=== PATIENT | male | born 2000 | race Caucasian/White ===

== ENCOUNTER 2020-09-21 10:28 | Inpatient (IN) ==
[2020-09-21] MEDS ORDERED: SODIUM CHLORIDE 0.9% 1000ML 1,000 ML IV STA (11:45)
[2020-09-21] MEDS ORDERED: ACETAMINOPHEN 1,000 MG/100 ML VIAL IV STA (11:49)
--- NOTE | 2020-09-21 11:58 | Emergency Department Note ---
Impression & Plan Mononucleosis, infectious, with hepatitis, Elevated LFTs, Jaundice ED Provider Note CHIEF COMPLAINT: Abdominal pain, elevated liver enzymes HISTORY OF PRESENTING ILLNESS: This is a 20-year-old male who presents to the emergency department by private vehicle with his mother with concern for e levated liver enzymes and jaundice. Patient has also been having abdominal pain for the past 3 weeks. Patient states that he was diagnosed on 09/14 with mononucleosis. He has been having symptoms of fevers and fatigue and upper abdominal pain since 09/02. He states that he saw his doctor today for repeat labs and they noticed an increase in his liver enzymes compared to previous labs and also felt that he looked jaundiced, so they sent him to the ER for further evaluation. The patient notes that he has had a persistent discomfort in his left upper abdomen, but this has been fairly constant and has not been getting any worse. He has not had any nausea or vomiting. He denies any diarrhea or constipation. He denies any trauma to his abdomen that he knows of, but does note that he was playing lacrosse and continuing to train for about 2 weeks before he got diagnosed with mono. He denies any abnormal bleeding or bruising, unusual rash, or blood in his stool or urine. He notes that he has been having persistent low-grade fevers of 100-101, this usually seems to improve after taking Tylenol. He has been taking Tylenol 2-3 times a day to help manage his body aches, headaches, and abdominal pain. REVIEW OF SYSTEMS: A complete 10 point review of systems was reviewed with the patient with pertinent positives and negatives as per history of present illness. All else were negative. PAST MEDICAL HISTORY: No significant past medical or surgical history SOCIAL HISTORY: Lives at home, he is a college student, denies tobacco use ALLERGIES: No known allergies PHYSICAL EXAM: CONSTITUTIONAL: Pleasant and cooperative. Nontoxic-appearing and no acute distress. Mildly dehydrated, but otherwise well appearing and well nourished. Mild jaundice. HEENT: Normocephalic, atraumatic. PERRLA, EOMI, mild scleral icterus bilaterally. Pharynx is erythematous, mild tonsillar edema but no exudates seen. Airway patent. Tacky mucous membranes. NECK: Supple, full active range of motion without discomfort. Mild posterior cervical adenopathy. No nuchal rigidity or meningismus. RESPIRATORY: Clear to auscultation bilaterally with no wheezing, crackles, rhonchi or stridor. Equal expansion bilaterally. CARDIOVASCULAR: Regular rate and rhythm with no murmurs, rubs or gallops. Normal peripheral perfusion. No edema. GASTROINTESTINAL: Mildly tender in the left upper quadrant, abdomen is otherwise nontender, soft and nondistended. No rebound tenderness or guarding. Mild splenomegaly, no hepatomegaly palpated. No palpable masses. Bowel sounds present in all quadrants. No CVA tenderness bilaterally. MUSCULOSKELETAL: Full range of motion of all joints without discomfort. INTEGUMENTARY: No rash or other significant dermatologic conditions noted. NEUROLOGIC: Alert and oriented X 4 with normal affect. Normal strength and sensation in all 4 extremities. Normal speech. Normal gait observed. ED COURSE AND MEDICAL DECISION MAKING: CC: Patient presenting with complaint of abdominal pain, elvated liver enzymes DIFFERENTIAL DIAGNOSIS: Includes, but not limited to mononucleosis, hepatitis, liver failure, liver toxicity, acetaminophen overdose, splenic enlargement, splenic rupture, pneumonia, pulmonary embolism, pneumothorax, dehydration, electrolyte abnormality, among others. INTERPRETATION OF LABS: Leukocytosis, mild anemia, normal platelets, mild hyponatremia, no other significant electrolyte abnormalities, normal renal function, significantly elevated T bili with elevated liver enzymes. Normal lipase. Coagulation factors within normal limits. UA negative for infection. Covid test negative. IMAGING: CT angio chest PE protocol CT DOSE: 1567.91 mGycm HISTORY: 20 years-old Male with SOB, eval PE. Acute shortness of breath with chest and upper abdominal pain TECHNIQUE: Multiple CTA images of the chest were obtained after the intravenous administration of 120 ml Optiray 320. Coronal and sagittal MIPS were obtained from the axial data set and were submitted for review. All measurements were obtained according to NASCET criteria. A dose lowering technique was utilized adhering to the principles of ALARA. COMPARISON: CT abdomen and pelvis of same day FINDINGS: CTA: The heart is normal in size. Trace pericardial effusion. No thoracic aortic aneurysm or dissection. Respiratory motion artifact and contrast bolus timing limits evaluation of the pulmonary artery. The segmental and subsegmental branches are not well visualized. No central pulmonary emboli are identified. CT CHEST: Unremarkable thyroid. Residual thymic tissue anterior mediastinum. Mildly enlarged mediastinal and hilar lymph nodes measure up to approximately 10 mm. Ax illary chain lymph nodes measure up to 12 mm. Small pleural effusions. No pneumothorax. Dependent bibasilar groundglass and linear consolidative opacities. 4 mm fissural nodule of the left upper lung, image 213. 4 mm solid nodule of the lingula, image 131. A few additional small fissural nodules are seen bilaterally measuring up to 3 mm suggestive of probable benign lymph nodes. Central airways are patent. No pneumoperitoneum. Splenomegaly with trace perisplenic ascites. Mild generalized body wall edema. There is no acute fracture or suspicious bone lesion. Mild mid thoracic dextroscoliosis. IMPRESSION: 1. Limited evaluation of the pulmonary artery as above. No central pulmonary emboli identified. 2. Small pleural effusions with mild bibasilar opacities suggestive of atelectasis. 3. Mild mediastinal, hilar and axillary chain adenopathy, possibly reactive considering the patient's reported history of mononucleosis. This finding in conjunction with the splenomegaly should be followed to exclude a lymphoproliferative disorder. ----- CT abd pelvis IV con only CLINICAL HISTORY: upper abd pain, + mono COMPARISON STUDY: None. TECHNIQUE: Patient was scanned in a dynamic helical fashion during intravenous administration of 1 20 cc of Optiray 320 A dose lowering technique was utilized adhering to the principles of ALARA. CT DOSE: FINDINGS: Lower chest: There are bibasilar airspace opacities statistically atelectatic. There are small bilateral pleural effusions Liver: The contrast-enhanced liver is normal in size, contour, and attenuation. There is no intrahepatic biliary ductal dilatation. The hepatic veins and portal veins are patent. Gallbladder: Contracted with mild pericholecystic fluid. Spleen: Enlarged measuring 21 cm. There is minimal perisplenic fluid. Pancreas: Unremarkable. Adrenal glands: Unremarkable. Kidneys: There is symmetric renal cortical enhancement. The kidneys are normal in size without hydronephrosis. Bowel: There are no transition zones indicate bowel obstruction. There is no evidence of acute diverticulitis. There is no evidence of acute appendicitis. Peritoneum: There is trace free pelvic fluid. There is no free intraperitoneal air. Vasculature: The abdominal aorta is normal in course and caliber. Adenopathy: Shotty mesenteric lymph nodes are likely reactive. Pelvic viscera: The bladder, and pelvic viscera are unremarkable. Skeletal structures: No destructive osseous lesions are seen. IMPRESSION: 1. No evidence of bowel obstruction. No evidence of free air 2. Small bilateral pleural effusions with basilar opacities likely atelectatic 3. Normal appendix. No evidence of acute diverticulitis 4. Moderate splenomegaly (21 cm). No current evidence of splenic rupture 5. Low volume ascites with minimal pericholecystic fluid, left perirenal fluid, perisplenic fluid, and minimal pelvic fluid 6. Mildly prominent mesenteric lymph nodes, likely reactive MEDICATION RECONCILIATION: I attest that I have personally reviewed the patient's current medication list. INITIAL VITAL SIGNS REVIEW: I reviewed the patient's initial vital signs and interpret them as follows: T: Afebrile; BP: Normotensive; HR: Mildly ta chycardic; RR: Within normal limits; Pulse Ox: Within normal limits on room air. MDM SUMMARY: Patient was evaluated at bedside, history and physical exam performed. Patient is alert and oriented, in no acute distress, resting calmly in stretcher. Patient is afebrile and nontoxic-appearing, but does appear to feel unwell. He is mildly jaundiced with mild scleral icterus. Abdomen is mildly tender in the left upper quadrant, mild splenomegaly on palpation. Orders were placed for labs, UA, IV fluid bolus for hydration, CTA of the chest and CT abdomen/pelvis with IV contrast to evaluate for shortness of breath and left upper abdominal pain. IV morphine ordered for pain. Patient discussed with Dr. Mcarthur, who agrees with my assessment, plan, and disposition. Labs and imaging reviewed as above, labs are notable for leukocytosis and significantly elevated liver enzymes and T bili. No UTI. Renal function is normal. Coagulation factors within normal limits. An acetaminophen level was unable to be performed today due to the patient's elevated bilirubin level. Patient reassessed multiple times throughout ED stay, he has remained hemodynamically stable, and his pain is improved after the morphine. Given his significant elevation in liver enzymes and T bili, I did consult to gastroenterology and spoke on the phone with Caren Houston PA-C. She spoke with Dr. Gould, who recommended admitting the patient for observation, and also recommended adding on several send out labs for further evaluation of hepatitis. They did also recommend starting the patient on N-acetylcysteine treatment, the first dose was ordered per their recommendations. I spoke on the phone with LINDA Cummins with the [facility] team, who agreed to evaluate the patient for admission. The patient and his mother were updated on all results and plan for admission, all questions were answered to the best of my ability and the patient and his mother were happy with this plan. The patient was stable at time of admission. The chart was completed utilizing [employer] Speech voice recognition software. Grammatical errors, random word insertions, pronoun errors, and incomplete sentences are an occasional consequence of this system due to software limitations, ambient noise, and hardware issues. Any formal questions or concerns about the content, text, or information contained within the body of this dictation should be directly addressed to the nurse practitioner for clarification. Past Med/Surg History Medical History (Updated 09/21/20 @ 20:48 by LINDA Gottlieb) COVID-19 virus infection WPW syndrome Surgical History History of heart surgery Family History (Updated 09/21/20 @ 19:58 by Avery Samayoa MD) Father No significant medical problems Sister No problems noted. Mother Deep vein thrombosis Grandfather (Maternal) Deep vein thrombosis Social History Smoking Status: Never smoker Hx Alcohol Use: Yes Hx Substance Use: No Current Living Situation: Family Current Living Situation Comment: Lives with mom and dad Feels Safe at Home: Yes Childhood Exposure to Second-Hand Smoke: No Dental Care, Regularly: Yes Allergies Allergies Allergy/AdvReac Type Severity Reaction Status Date / Time cat dander Allergy Unknown Verified 09/21/20 18:33 horse dander Allergy Unknown Verified 09/21/20 18:33 mold Allergy Unknown Verified 09/21/20 18:33 ragweed pollen Allergy Unknown Verified 09/21/20 18:33 tree and shrub pollen Allergy Unknown Verified 09/21/20 18:33 Home Meds Home Medications Medication Instructions Recorded Confirmed [id number]-acetaminophen 30 ml PO QID PRN 09/21/20 09/21/20 [NyQuil] ibuprofen 200 mg PO Q6H PRN 09/21/20 09/21/20 Results & Data (ED) Vital Signs Vital Signs - 24 hr 09/21/20 10:43 09/21/20 12:00 09/21/20 12:18 Temperature 37.8 C H Temperature Source Temporal Artery Scan Pulse Rate 95 H 95 H 94 H Pulse Rate [Apical] Pulse Rate from SpO2 Sensor 95 H 93 H Respiratory Rate 18 23 32 H Blood Pressure 132/61 133/61 Blood Pressure [Right Arm] Blood Pressure Mean 84 85 Blood Pressure Mean [Right Arm] Pulse Oximetry 98 98 98 Oxygen Delivery Method Sepsis Recent Fever Within 48 Hours No Sepsis New/Unexplained Change in Mental Status No Sepsis Action Taken by Nursing No Action Required 09/21/20 12:20 09/21/20 12:22 09/21/20 12:30 Temperature Temperature Source Pulse Rate 99 H 89 97 H Pulse Rate [Apical] Pulse Rate from SpO2 Sensor 98 H 89 95 H Respiratory Rate 28 H 19 26 H Blood Pressure 116/68 115/70 Blood Pressure [Right Arm] Blood Pressure Mean 84 85 Blood Pressure Mean [Right Arm] Pulse Oximetry 98 97 99 Oxygen Delivery Method Sepsis Recent Fever Within 48 Hours Sepsis New/Unexplained Change in Mental Status Sepsis Action Taken by Nursing 09/21/20 12:31 09/21/20 12:40 09/21/20 12:50 Temperature Temperature Source Pulse Rate 92 H 93 H 94 H Pulse Rate [Apical] Pulse Rate from SpO2 Sensor 92 H 95 H 95 H Respiratory Rate 18 31 H 28 H Blood Pressure Blood Pressure [Right Arm] Blood Pressure Mean Blood Pressure Mean [Right Arm] Pulse Oximetry 99 99 98 Oxygen Delivery Method Sepsis Recent Fever Within 48 Hours Sepsis New/Unexplained Change in Mental Status Sepsis Action Taken by Nursing 09/21/20 13:20 09/21/20 13:30 09/21/20 13:31 Temperature Temperature Source Pulse Rate 100 H 108 H 96 H Pulse Rate [Apical] Pulse Rate from SpO2 Sensor 100 H 108 H 97 H Respiratory Rate 20 23 25 H Blood Pressure 111/69 111/69 Blood Pressure [Right Arm] Blood Pressure Mean 83 83 Blood Pressure Mean [Right Arm] Pulse Oximetry 95 94 94 Oxygen Delivery Method Sepsis Recent Fever Within 48 Hours Sepsis New/Unexplained Change in Mental Status Sepsis Action Taken by Nursing 09/21/20 13:40 09/21/20 13:50 09/21/20 14:00 Temperature Temperature Source Pulse Rate 99 H 100 H 101 H Pulse Rate [Apical] Pulse Rate from SpO2 Sensor 100 H 99 H 99 H Respiratory Rate 31 H 27 H 24 Blood Pressure 112/57 L Blood Pressure [Right Arm] Blood Pressure Mean 75 Blood Pressure Mean [Right Arm] Pulse Oximetry 94 94 94 Oxygen Delivery Method Sepsis Recent Fever Within 48 Hours Sepsis New/Unexplained Change in Mental Status Sepsis Action Taken by Nursing 09/21/20 14:01 09/21/20 14:19 09/21/20 14:20 Temperature Temperature Source Pulse Rate 103 H 101 H 95 H Pulse Rate [Apical] Pulse Rate from SpO2 Sensor 104 H Respiratory Rate 24 16 17 Blood Pressure 105/62 Blood Pressure [Right Arm] Blood Pressure Mean 76 Blood Pressure Mean [Right Arm] Pulse Oximetry 95 Oxygen Delivery Method Sepsis Recent Fever Within 48 Hours Sepsis New/Unexplained Change in Mental Status Sepsis Action Taken by Nursing 09/21/20 14:21 09/21/20 14:30 09/21/20 14:31 Temperature Temperature Source Pulse Rate 96 H 96 H 99 H Pulse Rate [Apical] Pulse Rate from SpO2 Sensor Respiratory Rate 18 27 H 17 Blood Pressure 115/61 Blood Pressure [Right Arm] Blood Pressure Mean 79 Blood Pressure Mean [Right Arm] Pulse Oximetry Oxygen Delivery Method Sepsis Recent Fever Within 48 Hours Sepsis New/Unexplained Change in Mental Status Sepsis Action Taken by Nursing 09/21/20 14:40 09/21/20 14:50 09/21/20 15:00 Temperature Temperature Source Pulse Rate 99 H 97 H 99 H Pulse Rate [Apical] Pulse Rate from SpO2 Sensor Respiratory Rate 20 26 H 30 H Blood Pressure 108/59 L Blood Pressure [Right Arm] Blood Pressure Mean 75 Blood Pressure Mean [Right Arm] Pulse Oximetry Oxygen Delivery Method Sepsis Recent Fever Within 48 Hours Sepsis New/Unexplained Change in Mental Status Sepsis Action Taken by Nursing 09/21/20 15:01 09/21/20 15:10 09/21/20 15:20 Temperature Temperature Source Pulse Rate 102 H 94 H 94 H Pulse Rate [Apical] Pulse Rate from SpO2 Sensor Respiratory Rate 18 31 H 27 H Blood Pressure Blood Pressure [Right Arm] Blood Pressure Mean Blood Pressure Mean [Right Arm] Pulse Oximetry Oxygen Delivery Method Sepsis Recent Fever Within 48 Hours Sepsis New/Unexplained Change in Mental Status Sepsis Action Taken by Nursing 09/21/20 15:30 09/21/20 15:31 09/21/20 15:40 Temperature Temperature Source Pulse Rate 101 H 102 H 93 H Pulse Rate [Apical] Pulse Rate from SpO2 Sensor Respiratory Rate 27 H 24 18 Blood Pressure 102/65 Blood Pressure [Right Arm] Blood Pressure Mean 77 Blood Pressure Mean [Right Arm] Pulse Oximetry Oxygen Delivery Method Sepsis Recent Fever Within 48 Hours Sepsis New/Unexplained Change in Mental Status Sepsis Action Taken by Nursing 09/21/20 15:50 09/21/20 16:00 09/21/20 16:01 Temperature Temperature Source Pulse Rate 93 H 103 H 92 H Pulse Rate [Apical] Pulse Rate from SpO2 Sensor Respiratory Rate 28 H 26 H 29 H Blood Pressure 118/64 Blood Pressure [Right Arm] Blood Pressure Mean 82 Blood Pressure Mean [Right Arm] Pulse Oximetry Oxygen Delivery Method Sepsis Recent Fever Within 48 Hours Sepsis New/Unexplained Change in Mental Status Sepsis Action Taken by Nursing 09/21/20 16:10 09/21/20 16:20 09/21/20 16:30 Temperature Temperature Source Pulse Rate 93 H 91 H 98 H Pulse Rate [Apical] Pulse Rate from SpO2 Sensor Respiratory Rate 29 H 20 33 H Blood Pressure Blood Pressure [Right Arm] Blood Pressure Mean Blood Pressure Mean [Right Arm] Pulse Oximetry Oxygen Delivery Method Sepsis Recent Fever Within 48 Hours Sepsis New/Unexplained Change in Mental Status Sepsis Action Taken by Nursing 09/21/20 16:40 09/21/20 16:50 09/21/20 17:00 Temperature Temperature Source Pulse Rate 106 H 100 H 93 H Pulse Rate [Apical] Pulse Rate from SpO2 Sensor Respiratory Rate 27 H 23 27 H Blood Pressure 171/97 H Blood Pressure [Right Arm] Blood Pressure Mean 121 Blood Pressure Mean [Right Arm] Pulse Oximetry Oxygen Delivery Method Sepsis Recent Fever Within 48 Hours Sepsis New/Unexplained Change in Mental Status Sepsis Action Taken by Nursing 09/21/20 17:01 09/21/20 17:10 09/21/20 17:24 Temperature Temperature Source Pulse Rate 95 H 95 H 104 H Pulse Rate [Apical] Pulse Rate from SpO2 Sensor 106 H Respiratory Rate 19 31 H 28 H Blood Pressure Blood Pressure [Right Arm] Blood Pressure Mean Blood Pressure Mean [Right Arm] Pulse Oximetry 93 Oxygen Delivery Method Sepsis Recent Fever Within 48 Hours Sepsis New/Unexplained Change in Mental Status Sepsis Action Taken by Nursing 09/21/20 17:30 09/21/20 17:31 09/21/20 17:40 Temperature Temperature Source Pulse Rate 102 H 100 H 96 H Pulse Rate [Apical] Pulse Rate from SpO2 Sensor 102 H 101 H 97 H Respiratory Rate 20 16 22 Blood Pressure 107/66 Blood Pressure [Right Arm] Blood Pressure Mean 79 Blood Pressure Mean [Right Arm] Pulse Oximetry 93 93 94 Oxygen Delivery Method Sepsis Recent Fever Within 48 Hours Sepsis New/Unexplained Change in Mental Status Sepsis Action Taken by Nursing 09/21/20 17:50 09/21/20 18:00 09/21/20 18:01 Temperature Temperature Source Pulse Rate 96 H 101 H 98 H Pulse Rate [Apical] Pulse Rate from SpO2 Sensor 97 H 100 H 100 H Respiratory Rate 22 18 20 Blood Pressure 109/58 L Blood Pressure [Right Arm] Blood Pressure Mean 75 Blood Pressure Mean [Right Arm] Pulse Oximetry 94 95 97 Oxygen Delivery Method Sepsis Recent Fever Within 48 Hours Sepsis New/Unexplained Change in Mental Status Sepsis Action Taken by Nursing 09/21/20 18:10 09/21/20 18:20 09/21/20 18:22 Temperature Temperature Source Pulse Rate 101 H 103 H Pulse Rate [Apical] 99 H Pulse Rate from SpO2 Sensor 98 H 105 H Respiratory Rate 20 28 H 16 Blood Pressure Blood Pressure [Right Arm] 109/58 L Blood Pressure Mean Blood Pressure Mean [Right Arm] 75 Pulse Oximetry 94 93 94 Oxygen Delivery Method Room Air Sepsis Recent Fever Within 48 Hours Sepsis New/Unexplained Change in Mental Status Sepsis Action Taken by Nursing 09/21/20 18:26 09/21/20 18:30 09/21/20 18:31 Temperature Temperature Source Pulse Rate 93 H 96 H 92 H Pulse Rate [Apical] Pulse Rate from SpO2 Sensor 92 H 97 H 93 H Respiratory Rate 21 20 30 H Blood Pressure 109/58 L 119/78 Blood Pressure [Right Arm] Blood Pressure Mean 75 91 Blood Pressure Mean [Right Arm] Pulse Oximetry 94 95 93 Oxygen Delivery Method Sepsis Recent Fever Within 48 Hours Sepsis New/Unexplained Change in Mental Status Sepsis Action Taken by Nursing 09/21/20 18:40 09/21/20 18:50 09/21/20 19:00 Temperature Temperature Source Pulse Rate 95 H 96 H 101 H Pulse Rate [Apical] Pulse Rate from SpO2 Sensor 94 H 96 H 100 H Respiratory Rate 16 21 22 Blood Pressure 125/73 Blood Pressure [Right Arm] Blood Pressure Mean 90 Blood Pressure Mean [Right Arm] Pulse Oximetry 95 93 94 Oxygen Delivery Method Sepsis Recent Fever Within 48 Hours Sepsis New/Unexplained Change in Mental Status Sepsis Action Taken by Nursing 09/21/20 19:01 09/21/20 19:10 Temperature Temperature Source Pulse Rate 99 H 100 H Pulse Rate [Apical] Pulse Rate from SpO2 Sensor 98 H 101 H Respiratory Rate 33 H 32 H Blood Pressure Blood Pressure [Right Arm] Blood Pressure Mean Blood Pressure Mean [Right Arm] Pulse Oximetry 93 93 Oxygen Delivery Method Sepsis Recent Fever Within 48 Hours Sepsis New/Unexplained Change in Mental Status Sepsis Action Taken by Nursing Laboratory Data Result diagrams: 09/21/20 12:02 09/21/20 12:02 Lab Results 09/21/20 09/21/20 09/21/20 Range/Units 12:02 12:02 14:10 WBC 18.10 H (4.8-10.8) K/uL RBC 4.15 L (4.7-6.1) M/uL Hgb 13.6 L (14.0-18.0) g/dL Hct 36.4 L (42-52) % MCV 87.7 (80-100) fL MCH 32.8 (25-34) pg MCHC 37.4 H (32-36) g/dL RDW Std Deviation 45.1 (36.4-46.3) fL RDW Coeff of Tamiko 14.8 H (11.5-14.5) % Plt Count 172 (130-400) K/uL MPV 10.0 (7.4-10.4) fL Neutrophils % (Manual) 14.3 % Lymphocytes % (Manual) 2.7 % Reactive Lymphs % (Man) 79.4 % Monocytes % (Manual) 1.8 % Myelocytes % (Man) 1.8 % Neutrophils # (Manual) 2.59 (1.4-6.5) K/uL Total Absolute Neuts 2.59 (1.4-6.5) K/uL Lymphocytes # (Manual) 0.49 L (1.2-3.4) K/uL Reactive Lymphs # 14.37 K/uL Total Abs Lymphocytes 14.86 H (1.2-3.4) K/uL Monocytes # (Manual) 0.33 (0.11-0.59) K/uL Myelocytes # (Manual) 0.33 H (0-0) K/uL Toxic Vacuolation 2+ PT (9.0-12.0) Seconds INR (0.9-1.1) Sodium 132 L (136-145) mmol/L Potassium 4.7 (3.5-5.1) mmol/L Chloride 99 (98-107) mmol/L Carbon Dioxide 27 (21-32) mmol/L Anion Gap 6.0 (3-11) BUN 9 (7-18) mg/dl Creatinine 0.97 (0.6-1.4) mg/dl Est Cr Clr Drug Dosing 145.4 ml/min Est GFR ( Amer) 127.9 Est GFR (Non-Af Amer) 110.4 BUN/Creatinine Ratio 9.4 L (10-20) Glucose 77 (70-99) mg/dl Calcium 8.4 L (8.5-10.1) mg/dl Total Bilirubin 7.4 H (0.2-1) mg/dl AST 369 H (15-37) U/L ALT 425 H (12-78) U/L Alkaline Phosphatase 665 H (45-117) U/L Total Protein 6.6 (6.4-8.2) gm/dl Albumin 2.8 L (3.4-5.0) gm/dl Globulin 3.8 (2.5-4.0) gm/dl Albumin/Globulin Ratio 0.7 L (0.9-2) Lipase 158 (73-393) U/L Urine Color Dark Yellow Urine Appearance Clear (Clear) Urine pH 5.5 (4.5-7.5) Ur Specific [place] 1.034 H (1.000-1.030) Urine Protein Negative (Negative) Urine Glucose (UA) Negative (Negative) Urine Ketones 1+ H (Negative) Urine Blood Negative (Negative) Urine Nitrite Negative (Negative) Urine Bilirubin 1+ H (Negative) Urine Urobilinogen Negative (Negative) Ur Leukocyte Esterase Negative (Negative) Acetaminophen COVID-19 Eval Order SARS-CoV-2 (PCR) (Negative) Hep Bs Antigen (Neg) Hepatitis C Antibody (Neg) Influenza Type A (PCR) (Neg) Influenza Type B (PCR) (Neg) RSV (RT-PCR) (Neg) Group A Strep (PCR) (NotDetected) 09/21/20 09/21/20 09/21/20 Range/Units 15:40 16:27 16:27 WBC (4.8-10.8) K/uL RBC (4.7-6.1) M/uL Hgb (14.0-18.0) g/dL Hct (42-52) % MCV (80-100) fL MCH (25-34) pg MCHC (32-36) g/dL RDW Std Deviation (36.4-46.3) fL RDW Coeff of Tamiko (11.5-14.5) % Plt Count (130-400) K/uL MPV (7.4-10.4) fL Neutrophils % (Manual) % Lymphocytes % (Manual) % Reactive Lymphs % (Man) % Monocytes % (Manual) % Myelocytes % (Man) % Neutrophils # (Manual) (1.4-6.5) K/uL Total Absolute Neuts (1.4-6.5) K/uL Lymphocytes # (Manual) (1.2-3.4) K/uL Reactive Lymphs # K/uL Total Abs Lymphocytes (1.2-3.4) K/uL Monocytes # (Manual) (0.11-0.59) K/uL Myelocytes # (Manual) (0-0) K/uL Toxic Vacuolation PT 11.1 (9.0-12.0) Seconds INR 1.1 (0.9-1.1) Sodium (136-145) mmol/L Potassium (3.5-5.1) mmol/L Chloride (98-107) mmol/L Carbon Dioxide (21-32) mmol/L Anion Gap (3-11) BUN (7-18) mg/dl Creatinine (0.6-1.4) mg/dl Est Cr Clr Drug Dosing ml/min Est GFR ( Amer) Est GFR (Non-Af Amer) BUN/Creatinine Ratio (10-20) Glucose (70-99) mg/dl Calcium (8.5-10.1) mg/dl Total Bilirubin (0.2-1) mg/dl AST (15-37) U/L ALT (12-78) U/L Alkaline Phosphatase (45-117) U/L Total Protein (6.4-8.2) gm/dl Albumin (3.4-5.0) gm/dl Globulin (2.5-4.0) gm/dl Albumin/Globulin Ratio (0.9-2) Lipase (73-393) U/L Urine Color Urine Appearance (Clear) Urine pH (4.5-7.5) Ur Specific [place] (1.000-1.030) Urine Protein (Negative) Urine Glucose (UA) (Negative) Urine Ketones (Negative) Urine Blood (Negative) Urine Nitrite (Negative) Urine Bilirubin (Negative) Urine Urobilinogen (Negative) Ur Leukocyte Esterase (Negative) Acetaminophen Cancelled COVID-19 Eval Order SARS-CoV-2 (PCR) (Negative) Hep Bs Antigen (Neg) Hepatitis C Antibody (Neg) Influenza Type A (PCR) (Neg) Influenza Type B (PCR) (Neg) RSV (RT-PCR) (Neg) Group A Strep (PCR) NOT DETECTED (NotDetected) 09/21/20 09/21/20 09/21/20 Range/Units 16:27 18:35 18:35 WBC (4.8-10.8) K/uL RBC (4.7-6.1) M/uL Hgb (14.0-18.0) g/dL Hct (42-52) % MCV (80-100) fL MCH (25-34) pg MCHC (32-36) g/dL RDW Std Deviation (36.4-46.3) fL RDW Coeff of Tamiko (11.5-14.5) % Plt Count (130-400) K/uL MPV (7.4-10.4) fL Neutrophils % (Manual) % Lymphocytes % (Manual) % Reactive Lymphs % (Man) % Monocytes % (Manual) % Myelocytes % (Man) % Neutrophils # (Manual) (1.4-6.5) K/uL Total Absolute Neuts (1.4-6.5) K/uL Lymphocytes # (Manual) (1.2-3.4) K/uL Reactive Lymphs # K/uL Total Abs Lymphocytes (1.2-3.4) K/uL Monocytes # (Manual) (0.11-0.59) K/uL Myelocytes # (Manual) (0-0) K/uL Toxic Vacuolation PT (9.0-12.0) Seconds INR (0.9-1.1) Sodium (136-145) mmol/L Potassium (3.5-5.1) mmol/L Chloride (98-107) mmol/L Carbon Dioxide (21-32) mmol/L Anion Gap (3-11) BUN (7-18) mg/dl Creatinine (0.6-1.4) mg/dl Est Cr Clr Drug Dosing ml/min Est GFR ( Amer) Est GFR (Non-Af Amer) BUN/Creatinine Ratio (10-20) Glucose (70-99) mg/dl Calcium (8.5-10.1) mg/dl Total Bilirubin (0.2-1) mg/dl AST (15-37) U/L ALT (12-78) U/L Alkaline Phosphatase (45-117) U/L Total Protein (6.4-8.2) gm/dl Albumin (3.4-5.0) gm/dl Globulin (2.5-4.0) gm/dl Albumin/Globulin Ratio (0.9-2) Lipase (73-393) U/L Urine Color Urine Appearance (Clear) Urine pH (4.5-7.5) Ur Specific [place] (1.000-1.030) Urine Protein (Negative) Urine Glucose (UA) (Negative) Urine Ketones (Negative) Urine Blood (Negative) Urine Nitrite (Negative) Urine Bilirubin (Negative) Urine Urobilinogen (Negative) Ur Leukocyte Esterase (Negative) Acetaminophen COVID-19 Eval Order [facility] at [facility] SARS-CoV-2 (PCR) NEGATIVE (Negative) Hep Bs Antigen Neg (Neg) Hepatitis C Antibody Neg (Neg) Influenza Type A (PCR) Negative (Neg) Influenza Type B (PCR) Negative (Neg) RSV (RT-PCR) Negative (Neg) Group A Strep (PCR) (NotDetected) Administered Medications Sodium Chloride (Nss 1000ml) 1,000 mls @ 125 mls/hr IV .Q8H MATTY Stop: 10/21/20 16:29 Last Admin: 09/21/20 17:39 Dose: 125 mls/hr Documented by: [id number] Acetylcysteine 4,940 mg/ (Dextrose) 524.7 mls @ 125 mls/hr IV ONCE ONE; Protocol Stop: 09/21/20 21:39 Last Admin: 09/21/20 19:58 Dose: 125 mls/hr Documented by: [id number] Discontinued Medications Acetylcysteine (Acetylcysteine 200 Mg/Ml 30ml Vial) 14,800 mg IV NOW STA; Protocol Stop: 09/21/20 16:23 Last Admin: 09/21/20 17:25 Dose: Not Given Documented by: [id number] Sodium Chloride (Nss 1000ml) 1,000 mls @ 999 mls/hr IV .Q1H1M STA Stop: 09/21/20 12:45 Last Infusion: 09/21/20 13:10 Dose: 0 mls/hr Documented by: [id number] Admin: 09/21/20 12:22 Dose: 999 mls/hr Documented by: [id number] Acetaminophen (Ofirmev) 1,000 mg in 100 mls @ 400 mls/hr IV NOW STA Stop: 09/21/20 12:03 Last Admin: 09/21/20 12:45 Dose: Not Given Documented by: [id number] Acetylcysteine 14,800 mg/ (Dextrose) 274 mls @ 274 mls/hr IV ONE ONE; Protocol Stop: 09/21/20 17:59 Last Infusion: 09/21/20 19:07 Dose: 0 mls/hr Documented by: [id number] Admin: 09/21/20 17:24 Dose: 274 mls/hr Documented by: [id number] Ioversol (Optiray 320 125ml) 120 ml IV ONCE ONE Stop: 09/21/20 13:15 Last Admin: 09/21/20 13:15 Dose: 120 ml Documented by: [id number] Morphine Sulfate (Morphine Sulfate 4 Mg/Ml 1 Ml Carp\Vial) 4 mg IV NOW STA Stop: 09/21/20 12:33 Last Admin: 09/21/20 12:54 Dose: 4 mg Documented by: [id number] Morphine Sulfate (Morphine Sulfate 4 Mg/Ml 1 Ml Carp\Vial) Confirm Administered Dose 4 mg .ROUTE .STK-MED ONE Stop: 09/21/20 18:20 Last Admin: 09/21/20 18:21 Dose: 4 mg Documented by: [id number] Discharge Plan Visit Data Chief Complaint: Abnormal Labs/Diagnostic Testing Stated Complaint: ABNORMAL LFT'S,EBV+,JAUNDICE ED Provider: Lyn Mcarthur ED Midlevel Provider: Jenae Plummer Discharge Problem: Mononucleosis, infectious, with hepatitis, Elevated LFTs, Jaundice Patient Disposition: Admitted As Inpatient Condition: Good Forms Stand Alone Forms: [employer] Prescriptions Prescriptions: No Action NyQuil 7.5-60-30-1,000 mg/30 mL Liquid 30 ml PO QID PRN (Reason: Unknown) RF: 0 ibuprofen 200 mg Tablet 200 mg PO Q6H PRN (Reason: Fever Or Pain) RF: 0 Referrals Referrals: Shauna Hernandez MD [Primary Care Provider] -
[2020-09-21 12:10] LABS: Hematocrit (blood only) 36.4 % (42-52); Hemoglobin 13.6 g/dL (14.0-18.0); Mean Corpuscular Hemoglobin 32.8 pg (25-34); Mean Corpuscular Hgb Conc 37.4 g/dL (32-36); Mean Corpuscular Volume 87.7 fL (80-100); Platelet Count 172 K/uL (130-400); RDW Coefficient of Variation 14.8 % (11.5-14.5); RDW Standard Deviation 45.1 fL (36.4-46.3); Red Blood Count 4.15 M/uL (4.7-6.1)
[2020-09-21] MEDS ORDERED: MoRPHine SULFATE 4 MG/ML 1 ML CARP\\VIAL IV STA (12:32)
[2020-09-21 12:45] LABS: Albumin Globulin Ratio 0.7 (0.9-2); Albumin Level 2.8 gm/dl (3.4-5.0); BUN Creatinine Ratio 9.4 (10-20); Bilirubin,Total 7.4 mg/dl (0.2-1); Calcium 8.4 mg/dl (8.5-10.1); Creatinine Clr Calc Pharmacy 145.4 ml/min; Est GFR (African American) 127.9; Est GFR (Non-African American) 110.4; Globulin 3.8 gm/dl (2.5-4.0); Potassium 4.7 mmol/L (3.5-5.1); Total Protein 6.6 gm/dl (6.4-8.2)
[2020-09-21 12:55] LABS: ALC (manual) 14.86 K/uL (1.2-3.4); ANC (manual) 2.59 K/uL (1.4-6.5); Lymphocytes # (manual) 0.49 K/uL (1.2-3.4); Lymphocytes % (manual) 2.7 %; Monocytes # (manual) 0.33 K/uL (0.11-0.59); Monocytes % (manual) 1.8 %; Myelocytes # (manual) 0.33 K/uL (0-0); Myelocytes % (manual) 1.8 %; Neutrophils # (manual) 2.59 K/uL (1.4-6.5); Neutrophils % (manual) 14.3 %; Reactive Lymphocytes # (manual) 14.37 K/uL; Reactive Lymphocytes % (manual) 79.4 %; Toxic Vacuolation 2+
[2020-09-21] MEDS ORDERED: OPTIRAY 320 125ml IV ONE (13:14)
--- NOTE | 2020-09-21 13:25 | CT Scan Report ---
CT angio chest PE protocol CT DOSE: 1567.91 mGycm HISTORY: 20 years-old Male with SOB, eval PE. Acute shortness of breath with chest and upper abdomi nal pain TECHNIQUE: Multiple CTA images of the chest were obtained after the intravenous administration of 120 ml Optiray 320. Coronal and sagittal MIPS were obtained from the axial data set and were submitted for review. All measurements were obtained according to NASCET criteria. A dose lowering technique w as utilized adhering to the principles of ALARA. COMPARISON: CT abdomen and pelvis of same day FINDINGS: CTA: The heart is normal in size. Trace pericardial effusion. No thoracic aortic aneurysm or dissection. R espiratory motion artifact and contrast bolus timing limits evaluation of the pulmonary artery. The s egmental and subsegmental branches are not well visualized. No central pulmonary emboli are identifie d. CT CHEST: Unremarkable thyroid. Residual thymic tissue anterior mediastinum. Mildly enlarged mediastinal and hi lar lymph nodes measure up to approximately 10 mm. Axillary chain lymph nodes measure up to 12 mm. Sm all pleural effusions. No pneumothorax. Dependent bibasilar groundglass and linear consolidative opac ities. 4 mm fissural nodule of the left upper lung, image 213. 4 mm solid nodule of the lingula, imag e 131. A few additional small fissural nodules are seen bilaterally measuring up to 3 mm suggestive o f probable benign lymph nodes. Central airways are patent. No pneumoperitoneum. Splenomegaly with trace perisplenic ascites. Mild generalized body wall edema. T here is no acute fracture or suspicious bone lesion. Mild mid thoracic dextroscoliosis. IMPRESSION: 1. Limited evaluation of the pulmonary artery as above. No central pulmonary emboli identified. 2. Small pleural effusions with mild bibasilar opacities suggestive of atelectasis. 3. Mild mediastinal, hilar and axillary chain adenopathy, possibly reactive considering the patient's reported history of mononucleosis. This finding in conjunction with the splenomegaly should be follo wed to exclude a lymphoproliferative disorder. ACT 112: Negative or not required by law. The above report was generated using voice recognition software. It may contain grammatical, syntax o r spelling errors. Electronically signed by: Say Powers M.D. 09/21/2020 1:24 PM
--- NOTE | 2020-09-21 13:31 | CT Scan Report ---
CT abd pelvis IV con only CLINICAL HISTORY: upper abd pain, + mono COMPARISON STUDY: None. TECHNIQUE: Patient was scanned in a dynamic helical fashion during intravenous administration of 1 20 cc of Optiray 320 A dose lowering technique was utilized adhering to the principles of ALARA. CT DOSE: FINDINGS: Lower chest: There are bibasilar airspace opacities statistically atelectatic. There are small bilate ral pleural effusions Liver: The contrast-enhanced liver is normal in size, contour, and attenuation. There is no intrahepa tic biliary ductal dilatation. The hepatic veins and portal veins are patent. Gallbladder: Contracted with mild pericholecystic fluid. Spleen: Enlarged measuring 21 cm. There is minimal perisplenic fluid. Pancreas: Unremarkable. Adrenal glands: Unremarkable. Kidneys: There is symmetric renal cortical enhancement. The kidneys are normal in size without hydron ephrosis. Bowel: There are no transition zones indicate bowel obstruction. There is no evidence of acute divert iculitis. There is no evidence of acute appendicitis. Peritoneum: There is trace free pelvic fluid. There is no free intraperitoneal air. Vasculature: The abdominal aorta is normal in course and caliber. Adenopathy: Shotty mesenteric lymph nodes are likely reactive. Pelvic viscera: The bladder, and pelvic viscera are unremarkable. Skeletal structures: No destructive osseous lesions are seen. IMPRESSION: 1. No evidence of bowel obstruction. No evidence of free air 2. Small bilateral pleural effusions with basilar opacities likely atelectatic 3. Normal appendix. No evidence of acute diverticulitis 4. Moderate splenomegaly (21 cm). No current evidence of splenic rupture 5. Low volume ascites with minimal pericholecystic fluid, left perirenal fluid, perisplenic fluid, an d minimal pelvic fluid 6. Mildly prominent mesenteric lymph nodes, likely reactive ACT 112: Negative or not required by law. Electronically signed by: Teddy Dejesus M.D. 09/21/2020 1:29 PM
[2020-09-21 14:59] LABS: Appearance Urine Clear (Clear); Blood Urine Negative (Negative); Color Urine Dark Yellow; Glucose Urine UA Negative (Negative); Ketones Urine 1+ (Negative); Leukocyte Esterase Urine Negative (Negative); Nitrite Urine Negative (Negative); Protein Urine Negative (Negative); Specific Gravity Urine 1.034 (1.000-1.030); Urobilinogen Urine Negative (Negative); pH Urine 5.5 (4.5-7.5)
[2020-09-21 15:04] LABS: Bilirubin Urine 1+ (Negative)
[2020-09-21] MEDS ORDERED: ACETYLCYSTEINE IV ONE ×2 (17:00→17:28)
[2020-09-21] MEDS ORDERED: DEXTROSE 5% IV ONE ×2 (17:00→17:28)
[2020-09-21 17:01] LABS: INR 1.1 (0.9-1.1); Prothrombin Time 11.1 Seconds (9.0-12.0)
[2020-09-21] MEDS: SODIUM CHLORIDE 0.9% 1000ML 1,000 ML IV SCH (17:39)
[2020-09-21 17:43] LABS: Hepatitis B Surf Ag Rflx Conf Neg (Neg)
[2020-09-21] MEDS ORDERED: MoRPHine SULFATE 4 MG/ML 1 ML CARP\\VIAL IV PRN (18:08)
[2020-09-21 18:14] LABS: Hepatitis C IgG 13Yrs+Old_Rflx Neg (Neg)
[2020-09-21] MEDS ORDERED: MoRPHine SULFATE 4 MG/ML 1 ML CARP\\VIAL ONE (18:19)
--- NOTE | 2020-09-21 18:33 | History & Physical Report ---
Date of Service September 21, 2020 Assessment & Plan (1) Elevated LFTs: (2) Mononucleosis: (3) Mononucleosis, infectious, with hepatitis: Patient having symptoms of fatigue, low-grade fevers, pain in left upper abdominal quadrant since September 02 Tested positive September 14, EBV plus mononucleosis Was taking ibuprofen, for fevers at home, and resting, however clinically not improving LFTs to be noted elevated, and therefore PCP was following up His LFTs continuously elevated, recommended to present to ED CT abdomen pelvis obtained, shows moderate splenomegaly at 21 cm, no evidence of splenic rupture, low volume ascites with minimal pericholecystic fluid, left renal fluid, perisplenic fluid, and minimal pelvic fluid. Mildly prominent mesenteric lymph nodes, likely reactive. Current WBC 18,000, hemoglobin 13.6, platelets 172 Sodium on lower side, at 132 Now LFTs 369, ALT 425, alk phos 665, total bili 7.4 GI contacted Recommended to start acetylcysteine, and obtain hepatitis serologies Believed to be secondary to mononucleosis, and recommend close follow-up Hepatology in [place] also contacted, and recommend LFTs and INR check every 12 hours Closely monitor's patient hemodynamic status, and mental status, be aware of possible lethargy Pain management for left upper abd. pain DVT ppx: SCDs , ambulation Code: Full History of Present Illness Chief Complaint: Elevated LFTs, in the setting of mononucleosis Primary Care Provider: Shauna Hernandez MD 20 y/o male, with history of WPW, status post ablation at [facility], and no other significant medical history who was recently diagnosed with COVID-19 infection in May 31, 2020, had the negative test on September 13, 2020. He has been having fevers chills myalgias and decreased appetite since September 02, 2020. 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 This history was taken from PCPs note. He continued to have low-grade fevers however he did have actual fever as well of 101.1 Fahrenheit, has been having left-sided upper and lower quadrant abdominal discomfort, and feeling fatigued. Occasionally he also feels shortness of breath. He also reports having rash on and off since early August, different locations of his body, usually in his lower extremities sometimes on his chest, the rash is short acting, and currently patient denies having any. He was in isolation after his diagnosis, and then went home, he was no longer practicing sports and tried to get better, mostly resting. He was monitored by his PCP, who noticed that his LFTs were elevated. As his LFTs were still higher on recent labs, it was recommended that patient would be evaluated at the hospital and he was sent to the ED. In the ED GI was consulted for opinion as well, and the pt was started on acetylcysteine, hepatitis serologies pending. Allergies Allergy/AdvReac Type Severity Reaction Status Date / Time cat dander Allergy Unknown Verified 09/21/20 18:33 horse dander Allergy Unknown Verified 09/21/20 18:33 mold Allergy Unknown Verified 09/21/20 18:33 ragweed pollen Allergy Unknown Verified 09/21/20 18:33 tree and shrub pollen Allergy Unknown Verified 09/21/20 18:33 Home Medications Medication Instructions Recorded Confirmed Type [id number]-acetaminophen 30 ml PO QID PRN 09/21/20 09/21/20 History [NyQuil] ibuprofen 200 mg PO Q6H PRN 09/21/20 09/21/20 History Past Med/Surg History Medical History (Updated 09/21/20 @ 20:26 by Avery Samayoa MD) COVID-19 virus infection WPW syndrome Surgical History History of heart surgery Family History (Updated 09/21/20 @ 19:58 by Avery Samayoa MD) Father No significant medical problems Sister No problems noted. Mother Deep vein thrombosis Grandfather (Maternal) Deep vein thrombosis Social History Smoking Status: Never smoker Hx Alcohol Use: Yes Hx Substance Use: No Current Living Situation: Family Current Living Situation Comment: Lives with mom and dad Feels Safe at Home: Yes Childhood Exposure to Second-Hand Smoke: No Dental Care, Regularly: Yes Review of Systems Review of Systems: All systems reviewed & are unremarkable except as noted in HPI & below Constitutional: + fever (on and off), + chills and + fatigue Eyes: no problem reported Ear, Nose, Mouth, Throat: no problem reported Respiratory: + dyspnea (occasional); no cough Cardiovascular: no chest pain and no palpitations Gastrointestinal: + abdominal pain (Left lower/upper quadrant) Genitourinary: no problem reported Musculoskeletal: no problem reported Integumentary: no problem reported Neurologic: no problem reported Psychiatric: no problem reported Endocrine: no problem reported Hematologic / Lymphatic: no problem reported Allergy / Immunological: no problem reported Physical Exam Constitutional: WD/WN, vitals as above + ill appearing; no acute distress Eyes: PERRL, conjunctivae normal, anicteric sclerae ENMT: external ear and nose normal, oropharynx normal Neck: trachea midline, no thyromegaly Respiratory: normal respiratory effort, lungs clear to auscultation Auscultation: no crackles, no rhonchi and no wheezes Cardiovascular: RRR, no murmur, no edema Chest (Breasts): Chest: normal inspection of chest Gastrointestinal (Abdomen): Inspection/Auscultation: abdomen normal to inspection and normal bowel sounds; abdomen not distended Percussion/Palpation: + abdomen tender (at left upper/lower quadrants); no guarding and abdomen not rigid Musculoskeletal: no cyanosis or clubbing, extremities motor strength 5/5 Head/Neck/Chest: normocephalic and head atraumatic Skin: no rashes, warm and dry Neurologic: PERRL, EOMI, accommodation nl, no face palsy, no dysarthria Motor/Sensory: no tremor Psychiatric: A+Ox3, euthymic affect Genitourinary: no CVA tenderness Lymphatic: no lymphedema Results & Data Results & Data ([facility]) Vital Signs (Past 12 Hours) Vital Signs Temp Pulse Pulse Resp BP BP Pulse Ox 09/21/20 18:22 99 H 16 109/58 L 94 09/21/20 16:50 100 H 23 09/21/20 16:40 106 H 27 H 09/21/20 16:30 98 H 33 H 09/21/20 16:20 91 H 20 09/21/20 16:10 93 H 29 H 09/21/20 16:01 92 H 29 H 09/21/20 16:00 103 H 26 H 118/64 09/21/20 15:50 93 H 28 H 09/21/20 15:40 93 H 18 09/21/20 15:31 102 H 24 09/21/20 15:30 101 H 27 H 102/65 09/21/20 15:20 94 H 27 H 09/21/20 15:10 94 H 31 H 09/21/20 15:01 102 H 18 09/21/20 15:00 99 H 30 H 108/59 L 09/21/20 14:50 97 H 26 H 09/21/20 14:40 99 H 20 09/21/20 14:31 99 H 17 09/21/20 14:30 96 H 27 H 115/61 09/21/20 14:21 96 H 18 09/21/20 14:20 95 H 17 105/62 09/21/20 14:19 101 H 16 09/21/20 14:01 103 H 24 95 09/21/20 14:00 101 H 24 112/57 L 94 09/21/20 13:50 100 H 27 H 94 09/21/20 13:40 99 H 31 H 94 09/21/20 13:31 96 H 25 H 94 09/21/20 13:30 108 H 23 111/69 94 09/21/20 13:20 100 H 20 111/69 95 09/21/20 12:50 94 H 28 H 98 09/21/20 12:40 93 H 31 H 99 09/21/20 12:31 92 H 18 99 09/21/20 12:30 97 H 26 H 115/70 99 09/21/20 12:22 89 19 116/68 97 09/21/20 12:20 99 H 28 H 98 09/21/20 12:18 94 H 32 H 98 09/21/20 12:00 95 H 23 133/61 98 09/21/20 10:43 37.8 C H 95 H 18 132/61 98 Laboratory Results 09/21/20 09/21/20 09/21/20 Range/Units 16:27 16:27 16:27 WBC (4.8-10.8) K/uL RBC (4.7-6.1) M/uL Hgb (14.0-18.0) g/dL Hct (42-52) % MCV (80-100) fL MCH (25-34) pg MCHC (32-36) g/dL RDW Std Deviation (36.4-46.3) fL RDW Coeff of Tamiko (11.5-14.5) % Plt Count (130-400) K/uL MPV (7.4-10.4) fL Neutrophils % (Manual) % Lymphocytes % (Manual) % Reactive Lymphs % (Man) % Monocytes % (Manual) % Myelocytes % (Man) % Neutrophils # (Manual) (1.4-6.5) K/uL Total Absolute Neuts (1.4-6.5) K/uL Lymphocytes # (Manual) (1.2-3.4) K/uL Reactive Lymphs # K/uL Total Abs Lymphocytes (1.2-3.4) K/uL Monocytes # (Manual) (0.11-0.59) K/uL Myelocytes # (Manual) (0-0) K/uL Toxic Vacuolation PT (9.0-12.0) Seconds INR (0.9-1.1) Sodium (136-145) mmol/L Potassium (3.5-5.1) mmol/L Chloride (98-107) mmol/L Carbon Dioxide (21-32) mmol/L Anion Gap (3-11) BUN (7-18) mg/dl Creatinine (0.6-1.4) mg/dl Est Cr Clr Drug Dosing ml/min Est GFR ( Amer) Est GFR (Non-Af Amer) BUN/Creatinine Ratio (10-20) Glucose (70-99) mg/dl Calcium (8.5-10.1) mg/dl Total Bilirubin (0.2-1) mg/dl AST (15-37) U/L ALT (12-78) U/L Alkaline Phosphatase (45-117) U/L Total Protein (6.4-8.2) gm/dl Albumin (3.4-5.0) gm/dl Globulin (2.5-4.0) gm/dl Albumin/Globulin Ratio (0.9-2) Lipase (73-393) U/L Urine Color Urine Appearance (Clear) Urine pH (4.5-7.5) Ur Specific [place] (1.000-1.030) Urine Protein (Negative) Urine Glucose (UA) (Negative) Urine Ketones (Negative) Urine Blood (Negative) Urine Nitrite (Negative) Urine Bilirubin (Negative) Urine Urobilinogen (Negative) Ur Leukocyte Esterase (Negative) Acetaminophen VALE Screen Pending Anti-Mitochondrial Ab Pending Anti-Smooth Muscle Ab Pending CMV IgM Ab Pending CMV IgG Ab/TORCH Pending Hepatitis A IgM Ab Pending Hep Bs Antigen Neg (Neg) Hep B Core IgM Ab Pending Hepatitis C Antibody Neg (Neg) HSV I IgG Ab Pending HSV I IgM TORCH Pending HSV II IgG Pending HSV II IgM TORCH Pending Group A Strep (PCR) (NotDetected) Miscellaneous Test Pending 09/21/20 09/21/20 09/21/20 Range/Units 16:27 16:27 15:40 WBC (4.8-10.8) K/uL RBC (4.7-6.1) M/uL Hgb (14.0-18.0) g/dL Hct (42-52) % MCV (80-100) fL MCH (25-34) pg MCHC (32-36) g/dL RDW Std Deviation (36.4-46.3) fL RDW Coeff of Tamiko (11.5-14.5) % Plt Count (130-400) K/uL MPV (7.4-10.4) fL Neutrophils % (Manual) % Lymphocytes % (Manual) % Reactive Lymphs % (Man) % Monocytes % (Manual) % Myelocytes % (Man) % Neutrophils # (Manual) (1.4-6.5) K/uL Total Absolute Neuts (1.4-6.5) K/uL Lymphocytes # (Manual) (1.2-3.4) K/uL Reactive Lymphs # K/uL Total Abs Lymphocytes (1.2-3.4) K/uL Monocytes # (Manual) (0.11-0.59) K/uL Myelocytes # (Manual) (0-0) K/uL Toxic Vacuolation PT 11.1 (9.0-12.0) Seconds INR 1.1 (0.9-1.1) Sodium (136-145) mmol/L Potassium (3.5-5.1) mmol/L Chloride (98-107) mmol/L Carbon Dioxide (21-32) mmol/L Anion Gap (3-11) BUN (7-18) mg/dl Creatinine (0.6-1.4) mg/dl Est Cr Clr Drug Dosing ml/min Est GFR ( Amer) Est GFR (Non-Af Amer) BUN/Creatinine Ratio (10-20) Glucose (70-99) mg/dl Calcium (8.5-10.1) mg/dl Total Bilirubin (0.2-1) mg/dl AST (15-37) U/L ALT (12-78) U/L Alkaline Phosphatase (45-117) U/L Total Protein (6.4-8.2) gm/dl Albumin (3.4-5.0) gm/dl Globulin (2.5-4.0) gm/dl Albumin/Globulin Ratio (0.9-2) Lipase (73-393) U/L Urine Color Urine Appearance (Clear) Urine pH (4.5-7.5) Ur Specific [place] (1.000-1.030) Urine Protein (Negative) Urine Glucose (UA) (Negative) Urine Ketones (Negative) Urine Blood (Negative) Urine Nitrite (Negative) Urine Bilirubin (Negative) Urine Urobilinogen (Negative) Ur Leukocyte Esterase (Negative) Acetaminophen Cancelled VALE Screen Anti-Mitochondrial Ab Anti-Smooth Muscle Ab CMV IgM Ab CMV IgG Ab/TORCH Hepatitis A IgM Ab Hep Bs Antigen (Neg) Hep B Core IgM Ab Hepatitis C Antibody (Neg) HSV I IgG Ab HSV I IgM TORCH HSV II IgG HSV II IgM TORCH Group A Strep (PCR) NOT DETECTED (NotDetected) Miscellaneous Test 09/21/20 09/21/20 09/21/20 Range/Units 14:10 12:02 12:02 WBC 18.10 H (4.8-10.8) K/uL RBC 4.15 L (4.7-6.1) M/uL Hgb 13.6 L (14.0-18.0) g/dL Hct 36.4 L (42-52) % MCV 87.7 (80-100) fL MCH 32.8 (25-34) pg MCHC 37.4 H (32-36) g/dL RDW Std Deviation 45.1 (36.4-46.3) fL RDW Coeff of Tamiko 14.8 H (11.5-14.5) % Plt Count 172 (130-400) K/uL MPV 10.0 (7.4-10.4) fL Neutrophils % (Manual) 14.3 % Lymphocytes % (Manual) 2.7 % Reactive Lymphs % (Man) 79.4 % Monocytes % (Manual) 1.8 % Myelocytes % (Man) 1.8 % Neutrophils # (Manual) 2.59 (1.4-6.5) K/uL Total Absolute Neuts 2.59 (1.4-6.5) K/uL Lymphocytes # (Manual) 0.49 L (1.2-3.4) K/uL Reactive Lymphs # 14.37 K/uL Total Abs Lymphocytes 14.86 H (1.2-3.4) K/uL Monocytes # (Manual) 0.33 (0.11-0.59) K/uL Myelocytes # (Manual) 0.33 H (0-0) K/uL Toxic Vacuolation 2+ PT (9.0-12.0) Seconds INR (0.9-1.1) Sodium 132 L (136-145) mmol/L Potassium 4.7 (3.5-5.1) mmol/L Chloride 99 (98-107) mmol/L Carbon Dioxide 27 (21-32) mmol/L Anion Gap 6.0 (3-11) BUN 9 (7-18) mg/dl Creatinine 0.97 (0.6-1.4) mg/dl Est Cr Clr Drug Dosing 145.4 ml/min Est GFR ( Amer) 127.9 Est GFR (Non-Af Amer) 110.4 BUN/Creatinine Ratio 9.4 L (10-20) Glucose 77 (70-99) mg/dl Calcium 8.4 L (8.5-10.1) mg/dl Total Bilirubin 7.4 H (0.2-1) mg/dl AST 369 H (15-37) U/L ALT 425 H (12-78) U/L Alkaline Phosphatase 665 H (45-117) U/L Total Protein 6.6 (6.4-8.2) gm/dl Albumin 2.8 L (3.4-5.0) gm/dl Globulin 3.8 (2.5-4.0) gm/dl Albumin/Globulin Ratio 0.7 L (0.9-2) Lipase 158 (73-393) U/L Urine Color Dark Yellow Urine Appearance Clear (Clear) Urine pH 5.5 (4.5-7.5) Ur Specific [place] 1.034 H (1.000-1.030) Urine Protein Negative (Negative) Urine Glucose (UA) Negative (Negative) Urine Ketones 1+ H (Negative) Urine Blood Negative (Negative) Urine Nitrite Negative (Negative) Urine Bilirubin 1+ H (Negative) Urine Urobilinogen Negative (Negative) Ur Leukocyte Esterase Negative (Negative) Acetaminophen VALE Screen Anti-Mitochondrial Ab Anti-Smooth Muscle Ab CMV IgM Ab CMV IgG Ab/TORCH Hepatitis A IgM Ab Hep Bs Antigen (Neg) Hep B Core IgM Ab Hepatitis C Antibody (Neg) HSV I IgG Ab HSV I IgM TORCH HSV II IgG HSV II IgM TORCH Group A Strep (PCR) (NotDetected) Miscellaneous Test Medications Administered Current Inpatient Medications Sodium Chloride (Nss 1000ml) 1,000 mls @ 125 mls/hr IV .Q8H MATTY Stop: 10/21/20 16:29 Last Admin: 09/21/20 17:39 Dose: 125 mls/hr Documented by: Acetylcysteine 4,940 mg/ (Dextrose) 524.7 mls @ 125 mls/hr IV ONCE ONE; Protocol Stop: 09/21/20 21:39 Morphine Sulfate (Morphine Sulfate 4 Mg/Ml 1 Ml Carp\Vial) 4 mg IV Q4H PRN PRN Reason: Pain Stop: 10/05/20 18:07 Code Status & VTE Plan VTE Prophylaxis Plan VTE Prophylaxis will be ordered: Yes
[2020-09-21 19:16] LABS: Influenza A virus by PCR Negative (Neg); Influenza B virus by PCR Negative (Neg); RSV by PCR Negative (Neg); SARS CoV2 RNA(COVID-19) InHosp NEGATIVE (Negative)
[2020-09-22] MEDS ORDERED: AcetylCYSTEINE IV 21 HR REGIMEN (>40KG) IV STA (00:20)
[2020-09-22] MEDS ORDERED: DEXTROSE 5% IV ONE (00:45)
[2020-09-22] MEDS ORDERED: ACETYLCYSTEINE IV ONE (00:45)
[2020-09-22] MEDS: SODIUM CHLORIDE 0.9% 1000ML 1,000 ML IV SCH ×3 (00:58→17:03)
[2020-09-22 01:16] LABS: INR 1.2 (0.9-1.1); Prothrombin Time 11.7 Seconds (9.0-12.0)
[2020-09-22 01:36] LABS: Albumin Level 2.4 gm/dl (3.4-5.0); Bilirubin Direct 5.2 mg/dl (0-0.2)
[2020-09-22] MEDS ORDERED: HYDROmorphone INJ 0.5 MG/0.5 ML SYR ONE (01:45)
[2020-09-22] MEDS ORDERED: KETOROLAC 30 MG/ML VIAL IV ONE (02:01)
[2020-09-22] MEDS ORDERED: KETOROLAC 30 MG/ML VIAL ONE (02:09)
[2020-09-22] MEDS ORDERED: KETOROLAC TROMETHAMINE 15 MG/ML VIAL IV ONE (02:18)
[2020-09-22 07:16] LABS: BUN Creatinine Ratio 8.9 (10-20); Calcium 7.5 mg/dl (8.5-10.1); Creatinine Clr Calc Pharmacy 158.4 ml/min; Est GFR (African American) 140.7; Est GFR (Non-African American) 121.4; Potassium 4.4 mmol/L (3.5-5.1)
[2020-09-22 07:57] LABS: Hematocrit (blood only) 35.6 % (42-52); Hemoglobin 12.4 g/dL (14.0-18.0); Mean Corpuscular Hemoglobin 28.2 pg (25-34); Mean Corpuscular Hgb Conc 34.8 g/dL (32-36); Mean Corpuscular Volume 80.9 fL (80-100); Mean Platelet Volume 10.2 fL (7.4-10.4); Platelet Count 178 K/uL (130-400); RDW Coefficient of Variation 14.8 % (11.5-14.5); RDW Standard Deviation 43.6 fL (36.4-46.3); White Blood Count 16.39 K/uL (4.8-10.8)
[2020-09-22] MEDS: HYDROmorphone INJ 0.5 MG/0.5 ML SYR IV PRN ×5 (08:04→23:21)
--- NOTE | 2020-09-22 08:12 | Gastrointestinal Consultation ---
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 Appears fatigued, obviously jaundiced, but abd soft, hemodynamically stable. He has no symptoms of encephalopathy, and INR is stable, does not seem to be in hepatic failure. Today LFTs and WBC trended down slightly; he is tolerating light diet. - Will ensure no other underlying cause, and work-up including full viral hepatitis panel, HSV, CMV, ASMA, AMA, VALE panel is pending - Would trend LFTs, CBC, INR - Additionally will check Factor VII to evaluate synthetic liver function, coagulopathy - Diet as tolerated - Supportive care with IVF, analgesia as needed - Would avoid Tylenol - Continue NAC, finish 21-hour protocol - We discussed overall, with supportive care and time, his symptoms and overall course should begin to improve; he knows that playing contact sports is not advised in the setting of splenomegaly due to risk of splenic injury from trauma. Supervising Physician Co-Signing Physician Notes Attending attestation I have seen, examined this patient, and agree with the findings and above by our mid-level provider Patty Lees with the following additions: - Patient with hepatitis likely from mononucleosis, synthetic function appears to be intact. No evidence defined acute liver injury and certainly no evidence of liver failure. LFTs are coming down including bili Irby that was previously 7.9 as an outpatient, now following as well as transaminases very slowly. Still has expected malaise. Continue to follow hepatitis-B as well as a serologies. Other etiologies such as HSV and CMV. Continue Mucomyst without discontinuation will continue to follow. History of Present Illness Reason for Consultation: transaminitis Requesting Physician: LINDA Cummins Attending Physician: Mike Mckeon MD History of Present Illness This is a 20 y/o male college student with history of WPW but otherwise previously healthy, who around September 02 developed symptoms of malaise, some low-grade fevers, left upper abdominal discomfort, intermittent diffuse itchy rash, and fatigue, sore throat. Symptoms did not improve and tested positive for mononucleosis on September 14. LFTs were noted to be elevated and he had reactive leukocytosis. He was treating his symptoms with intermittent ibuprofen use, and occasional Tylenol use. On recheck earlier this week, they had elevated further and he was noted to be jaundiced; he was then referred to the emergency room for further work-up. On arrival, AST 361, ALT 425, ALP 665, T bili 7.4, WBC 18 K, Hgb 13.6, INR 1.1, plt 172, albumin 2.8, glucose WNL. Imaging included CTAP with no evidence of biliary obstruction, including no intrahepatic biliary ductal dilatation, with normal size contour and attenuation of the liver, and moderate splenomegaly; low volume ascites and mildly prominent mesenteric lymph nodes, likely reactive. He was having some SOB and CTA was done neg for PE but notable for mild mediastinal/hilar/axillary adenopathy. GI was consulted for transaminitis. Pt was started on IVF, as well as Mucomyst IV as well as analgesia for headache. Overnight, he did have his typical evening fever, and continued headache, treated with analgesia. He has defervesced this morning, tolerated a light breakfast, mental status remains at baseline. Feeling possibly somewhat improved from admission but overall continues with fatigue, malaise, and sore throat. LFTs slightly trended down, AST 285, ALT 352, ALP 635, T bili 7, and WBC 16 K, INR 1.2. Hep C and Hep B sAG negative, COVID neg. Other w/u including the rest of acute hepatitis panel, VALE, ASMA, AMA, HSV, CMV pending. He tells me in general, he is a healthy individual. Last year he was overweight and weighed over 300 pounds, has intentionally lost approximately 120 pounds since then with improved diet, regular exercise, and was also using a weight loss supplement, he believes to be a "thermogenic." However has not used this since last summer. Declines use of steroids, or illicit drug use. The most Tylenol he was taking with all of this was approximately 1000 mg/day and has not used any in the last week. Had been using ibuprofen approximately 800 mg/day until admission. Denies taking any herbal supplements or other OTC medications. Previously would drink alcohol on the weekends, approximately 3-4 drinks on Sunday and Sunday. However, in the last 3 to 4 months he has not had any alcohol. 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 No personal or family history of hepatic disease that he is aware of. Allergies Allergy/AdvReac Type Severity Reaction Status Date / Time cat dander Allergy Unknown Verified 09/21/20 18:33 horse dander Allergy Unknown Verified 09/21/20 18:33 mold Allergy Unknown Verified 09/21/20 18:33 ragweed pollen Allergy Unknown Verified 09/21/20 18:33 tree and shrub pollen Allergy Unknown Verified 09/21/20 18:33 Home Medications Medication Instructions Recorded Confirmed Type [id number]-acetaminophen 30 ml PO QID PRN 09/21/20 09/21/20 History [NyQuil] ibuprofen 200 mg PO Q6H PRN 09/21/20 09/21/20 History Patient History Medical History (Updated 09/21/20 @ 20:48 by LINDA Gottlieb) COVID-19 virus infection WPW syndrome Surgical History History of heart surgery Family History (Updated 09/21/20 @ 19:58 by Avery Samayoa MD) Father No significant medical problems Sister No problems noted. 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 Required: No Beliefs That Will Affect Care: None Current Living Situation: Family Current Living Situation Comment: Lives with mom and dad Other Information That Helps Us Care for You: No Feels Safe at Home: Yes Safety Concerns: Feels Safe At This Time Childhood Exposure to Second-Hand Smoke: No Dental Care, Regularly: Yes Assistive Devices: None Review of Systems Constitutional: + fever, + body aches, + fatigue and + malaise Eyes: icterus Ear, Nose, Mouth, Throat: sore throat; denies difficulty swallowing Respiratory: no cough and no dyspnea on exertion He has intermittent dyspnea, mostly when sitting up in bed Cardiovascular: no chest pain and no edema Gastrointestinal: LUQ abdominal pain as above, no nausea vomiting, no hematemesis, melena or hematochezia. Bowel habits are regular, solid and usually brown. Had noticed a neri stool here or there in the last few days. 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 Respiratory: normal respiratory effort, lungs clear to auscultation Cardiovascular: RRR, no murmur, no edema Gastrointestinal (Abdomen): Inspection/Auscultation: abdomen normal to inspection Percussion/Palpation: abdomen soft; abdomen nontender and no guarding + fullness over the LUQ/left flank c/w splenomegaly Skin: + jaundice; no rashes Results & Data ([facility] [place]) Vital Signs (Past 12 Hours) Vital Signs Temp Pulse Pulse Pulse Resp BP BP 09/22/20 07:36 36.4 C L 79 18 112/70 09/22/20 07:00 97 H 09/22/20 04:34 37.2 C 92 H 18 107/69 09/22/20 02:50 110 H 09/22/20 02:18 38.6 C H 09/22/20 01:57 39.4 C H 112 H 22 124/70 09/22/20 01:31 120 H 24 09/22/20 01:30 117 H 27 H 116/74 09/22/20 01:20 112 H 32 H 09/22/20 01:10 110 H 34 H 09/22/20 01:01 111 H 24 09/22/20 01:00 112 H 20 136/74 09/22/20 00:50 114 H 17 09/22/20 00:40 110 H 29 H 09/22/20 00:31 105 H 32 H 09/22/20 00:30 123 H 17 124/76 09/22/20 00:20 108 H 30 H 09/22/20 00:10 103 H 31 H 09/22/20 00:01 102 H 22 09/22/20 00:00 101 H 23 111/70 09/21/20 23:50 103 H 34 H 09/21/20 23:40 100 H 33 H 09/21/20 23:31 97 H 21 09/21/20 23:30 106 H 27 H 128/76 09/21/20 23:20 102 H 24 09/21/20 23:10 104 H 15 09/21/20 23:01 107 H 15 09/21/20 23:00 100 H 20 128/79 09/21/20 22:50 103 H 24 09/21/20 22:40 93 H 22 09/21/20 22:31 99 H 24 09/21/20 22:30 110 H 23 116/72 09/21/20 22:20 102 H 31 H 09/21/20 22:10 98 H 28 H 09/21/20 22:01 104 H 23 09/21/20 22:00 108 H 20 119/69 09/21/20 21:50 106 H 23 09/21/20 21:40 102 H 30 H 09/21/20 21:31 99 H 29 H 09/21/20 21:30 108 H 19 116/72 09/21/20 21:20 104 H 21 09/21/20 21:10 110 H 23 09/21/20 21:01 110 H 26 H 09/21/20 21:00 112 H 22 118/68 09/21/20 20:50 111 H 21 09/21/20 20:40 102 H 23 09/21/20 20:31 108 H 20 09/21/20 20:30 102 H 25 H 131/72 09/21/20 20:20 100 H 25 H Pulse Ox 09/22/20 07:36 94 09/22/20 07:00 09/22/20 04:34 94 09/22/20 02:50 09/22/20 02:18 09/22/20 01:57 99 09/22/20 01:31 96 09/22/20 01:30 93 09/22/20 01:20 93 09/22/20 01:10 94 09/22/20 01:01 96 09/22/20 01:00 95 09/22/20 00:50 96 09/22/20 00:40 95 09/22/20 00:31 97 09/22/20 00:30 94 09/22/20 00:20 94 09/22/20 00:10 95 09/22/20 00:01 96 09/22/20 00:00 96 09/21/20 23:50 94 09/21/20 23:40 95 09/21/20 23:31 98 09/21/20 23:30 96 09/21/20 23:20 97 09/21/20 23:10 97 09/21/20 23:01 96 09/21/20 23:00 97 09/21/20 22:50 96 09/21/20 22:40 96 09/21/20 22:31 98 09/21/20 22:30 95 09/21/20 22:20 94 09/21/20 22:10 93 09/21/20 22:01 90 09/21/20 22:00 96 09/21/20 21:50 94 09/21/20 21:40 94 09/21/20 21:31 94 09/21/20 21:30 95 09/21/20 21:20 93 09/21/20 21:10 92 09/21/20 21:01 92 09/21/20 21:00 93 09/21/20 20:50 94 09/21/20 20:40 95 09/21/20 20:31 94 09/21/20 20:30 94 09/21/20 20:20 93 Laboratory Results 09/22/20 09/22/20 09/22/20 Range/Units 06:13 06:13 00:49 WBC 16.39 H (4.8-10.8) K/uL RBC 4.40 L (4.7-6.1) M/uL Hgb 12.4 L (14.0-18.0) g/dL Hct 35.6 L (42-52) % MCV 80.9 D (80-100) fL MCH 28.2 (25-34) pg MCHC 34.8 (32-36) g/dL RDW Std Deviation 43.6 (36.4-46.3) fL RDW Coeff of Tamiko 14.8 H (11.5-14.5) % Plt Count 178 (130-400) K/uL MPV 10.2 (7.4-10.4) fL Neutrophils % (Manual) % Lymphocytes % (Manual) % Reactive Lymphs % (Man) % Monocytes % (Manual) % Myelocytes % (Man) % Neutrophils # (Manual) (1.4-6.5) K/uL Total Absolute Neuts (1.4-6.5) K/uL Lymphocytes # (Manual) (1.2-3.4) K/uL Reactive Lymphs # K/uL Total Abs Lymphocytes (1.2-3.4) K/uL Monocytes # (Manual) (0.11-0.59) K/uL Myelocytes # (Manual) (0-0) K/uL Toxic Vacuolation PT (9.0-12.0) Seconds INR (0.9-1.1) Sodium 132 L (136-145) mmol/L Potassium 4.4 (3.5-5.1) mmol/L Chloride 101 (98-107) mmol/L Carbon Dioxide 25 (21-32) mmol/L Anion Gap 6.0 (3-11) BUN 8 (7-18) mg/dl Creatinine 0.89 (0.6-1.4) mg/dl Est Cr Clr Drug Dosing 158.4 ml/min Est GFR ( Amer) 140.7 Est GFR (Non-Af Amer) 121.4 BUN/Creatinine Ratio 8.9 L (10-20) Glucose 94 (70-99) mg/dl Calcium 7.5 L (8.5-10.1) mg/dl Total Bilirubin 7.0 H (0.2-1) mg/dl Direct Bilirubin 5.2 H (0-0.2) mg/dl AST 285 H (15-37) U/L ALT 352 H (12-78) U/L Alkaline Phosphatase 635 H (45-117) U/L Total Protein 6.0 L (6.4-8.2) gm/dl Albumin 2.4 L (3.4-5.0) gm/dl Globulin (2.5-4.0) gm/dl Albumin/Globulin Ratio (0.9-2) Lipase (73-393) U/L Urine Color Urine Appearance (Clear) Urine pH (4.5-7.5) Ur Specific Sumner (1.000-1.030) Urine Protein (Negative) Urine Glucose (UA) (Negative) Urine Ketones (Negative) Urine Blood (Negative) Urine Nitrite (Negative) Urine Bilirubin (Negative) Urine Urobilinogen (Negative) Ur Leukocyte Esterase (Negative) Acetaminophen VALE Screen Anti-Mitochondrial Ab Anti-Smooth Muscle Ab COVID-19 Eval Order SARS-CoV-2 (PCR) (Negative) CMV IgM Ab CMV IgG Ab/TORCH Hepatitis A IgM Ab Hep Bs Antigen (Neg) Hep B Core IgM Ab Hepatitis C Antibody (Neg) HSV I IgG Ab HSV I IgM TORCH HSV II IgG HSV II IgM TORCH Influenza Type A (PCR) (Neg) Influenza Type B (PCR) (Neg) RSV (RT-PCR) (Neg) Group A Strep (PCR) (NotDetected) Miscellaneous Test 09/22/20 09/21/20 09/21/20 Range/Units 00:49 18:35 18:35 WBC (4.8-10.8) K/uL RBC (4.7-6.1) M/uL Hgb (14.0-18.0) g/dL Hct (42-52) % MCV (80-100) fL MCH (25-34) pg MCHC (32-36) g/dL RDW Std Deviation (36.4-46.3) fL RDW Coeff of Tamiko (11.5-14.5) % Plt Count (130-400) K/uL MPV (7.4-10.4) fL Neutrophils % (Manual) % Lymphocytes % (Manual) % Reactive Lymphs % (Man) % Monocytes % (Manual) % Myelocytes % (Man) % Neutrophils # (Manual) (1.4-6.5) K/uL Total Absolute Neuts (1.4-6.5) K/uL Lymphocytes # (Manual) (1.2-3.4) K/uL Reactive Lymphs # K/uL Total Abs Lymphocytes (1.2-3.4) K/uL Monocytes # (Manual) (0.11-0.59) K/uL Myelocytes # (Manual) (0-0) K/uL Toxic Vacuolation PT 11.7 (9.0-12.0) Seconds INR 1.2 H (0.9-1.1) Sodium (136-145) mmol/L Potassium (3.5-5.1) mmol/L Chloride (98-107) mmol/L Carbon Dioxide (21-32) mmol/L Anion Gap (3-11) BUN (7-18) mg/dl Creatinine (0.6-1.4) mg/dl Est Cr Clr Drug Dosing ml/min Est GFR ( Amer) Est GFR (Non-Af Amer) BUN/Creatinine Ratio (10-20) Glucose (70-99) mg/dl Calcium (8.5-10.1) mg/dl Total Bilirubin (0.2-1) mg/dl Direct Bilirubin (0-0.2) mg/dl AST (15-37) U/L ALT (12-78) U/L Alkaline Phosphatase (45-117) U/L Total Protein (6.4-8.2) gm/dl Albumin (3.4-5.0) gm/dl Globulin (2.5-4.0) gm/dl Albumin/Globulin Ratio (0.9-2) Lipase (73-393) U/L Urine Color Urine Appearance (Clear) Urine pH (4.5-7.5) Ur Specific Sumner (1.000-1.030) Urine Protein (Negative) Urine Glucose (UA) (Negative) Urine Ketones (Negative) Urine Blood (Negative) Urine Nitrite (Negative) Urine Bilirubin (Negative) Urine Urobilinogen (Negative) Ur Leukocyte Esterase (Negative) Acetaminophen VALE Screen Anti-Mitochondrial Ab Anti-Smooth Muscle Ab COVID-19 Eval Order CovFluRsv at [facility] SARS-CoV-2 (PCR) NEGATIVE (Negative) CMV IgM Ab CMV IgG Ab/TORCH Hepatitis A IgM Ab Hep Bs Antigen (Neg) Hep B Core IgM Ab Hepatitis C Antibody (Neg) HSV I IgG Ab HSV I IgM TORCH HSV II IgG HSV II IgM TORCH Influenza Type A (PCR) Negative (Neg) Influenza Type B (PCR) Negative (Neg) RSV (RT-PCR) Negative (Neg) Group A Strep (PCR) (NotDetected) Miscellaneous Test 09/21/20 09/21/20 09/21/20 Range/Units 16:27 16:27 16:27 WBC (4.8-10.8) K/uL RBC (4.7-6.1) M/uL Hgb (14.0-18.0) g/dL Hct (42-52) % MCV (80-100) fL MCH (25-34) pg MCHC (32-36) g/dL RDW Std Deviation (36.4-46.3) fL RDW Coeff of Tamiko (11.5-14.5) % Plt Count (130-400) K/uL MPV (7.4-10.4) fL Neutrophils % (Manual) % Lymphocytes % (Manual) % Reactive Lymphs % (Man) % Monocytes % (Manual) % Myelocytes % (Man) % Neutrophils # (Manual) (1.4-6.5) K/uL Total Absolute Neuts (1.4-6.5) K/uL Lymphocytes # (Manual) (1.2-3.4) K/uL Reactive Lymphs # K/uL Total Abs Lymphocytes (1.2-3.4) K/uL Monocytes # (Manual) (0.11-0.59) K/uL Myelocytes # (Manual) (0-0) K/uL Toxic Vacuolation PT (9.0-12.0) Seconds INR (0.9-1.1) Sodium (136-145) mmol/L Potassium (3.5-5.1) mmol/L Chloride (98-107) mmol/L Carbon Dioxide (21-32) mmol/L Anion Gap (3-11) BUN (7-18) mg/dl Creatinine (0.6-1.4) mg/dl Est Cr Clr Drug Dosing ml/min Est GFR ( Amer) Est GFR (Non-Af Amer) BUN/Creatinine Ratio (10-20) Glucose (70-99) mg/dl Calcium (8.5-10.1) mg/dl Total Bilirubin (0.2-1) mg/dl Direct Bilirubin (0-0.2) mg/dl AST (15-37) U/L ALT (12-78) U/L Alkaline Phosphatase (45-117) U/L Total Protein (6.4-8.2) gm/dl Albumin (3.4-5.0) gm/dl Globulin (2.5-4.0) gm/dl Albumin/Globulin Ratio (0.9-2) Lipase (73-393) U/L Urine Color Urine Appearance (Clear) Urine pH (4.5-7.5) Ur Specific Sumner (1.000-1.030) Urine Protein (Negative) Urine Glucose (UA) (Negative) Urine Ketones (Negative) Urine Blood (Negative) Urine Nitrite (Negative) Urine Bilirubin (Negative) Urine Urobilinogen (Negative) Ur Leukocyte Esterase (Negative) Acetaminophen VALE Screen Pending Anti-Mitochondrial Ab Pending Anti-Smooth Muscle Ab Pending COVID-19 Eval Order SARS-CoV-2 (PCR) (Negative) CMV IgM Ab Pending CMV IgG Ab/TORCH Pending Hepatitis A IgM Ab Pending Hep Bs Antigen Neg (Neg) Hep B Core IgM Ab Pending Hepatitis C Antibody Neg (Neg) HSV I IgG Ab Pending HSV I IgM TORCH Pending HSV II IgG Pending HSV II IgM TORCH Pending Influenza Type A (PCR) (Neg) Influenza Type B (PCR) (Neg) RSV (RT-PCR) (Neg) Group A Strep (PCR) (NotDetected) Miscellaneous Test Pending 09/21/20 09/21/20 09/21/20 Range/Units 16:27 16:27 15:40 WBC (4.8-10.8) K/uL RBC (4.7-6.1) M/uL Hgb (14.0-18.0) g/dL Hct (42-52) % MCV (80-100) fL MCH (25-34) pg MCHC (32-36) g/dL RDW Std Deviation (36.4-46.3) fL RDW Coeff of Tamiko (11.5-14.5) % Plt Count (130-400) K/uL MPV (7.4-10.4) fL Neutrophils % (Manual) % Lymphocytes % (Manual) % Reactive Lymphs % (Man) % Monocytes % (Manual) % Myelocytes % (Man) % Neutrophils # (Manual) (1.4-6.5) K/uL Total Absolute Neuts (1.4-6.5) K/uL Lymphocytes # (Manual) (1.2-3.4) K/uL Reactive Lymphs # K/uL Total Abs Lymphocytes (1.2-3.4) K/uL Monocytes # (Manual) (0.11-0.59) K/uL Myelocytes # (Manual) (0-0) K/uL Toxic Vacuolation PT 11.1 (9.0-12.0) Seconds INR 1.1 (0.9-1.1) Sodium (136-145) mmol/L Potassium (3.5-5.1) mmol/L Chloride (98-107) mmol/L Carbon Dioxide (21-32) mmol/L Anion Gap (3-11) BUN (7-18) mg/dl Creatinine (0.6-1.4) mg/dl Est Cr Clr Drug Dosing ml/min Est GFR ( Amer) Est GFR (Non-Af Amer) BUN/Creatinine Ratio (10-20) Glucose (70-99) mg/dl Calcium (8.5-10.1) mg/dl Total Bilirubin (0.2-1) mg/dl Direct Bilirubin (0-0.2) mg/dl AST (15-37) U/L ALT (12-78) U/L Alkaline Phosphatase (45-117) U/L Total Protein (6.4-8.2) gm/dl Albumin (3.4-5.0) gm/dl Globulin (2.5-4.0) gm/dl Albumin/Globulin Ratio (0.9-2) Lipase (73-393) U/L Urine Color Urine Appearance (Clear) Urine pH (4.5-7.5) Ur Specific Sumner (1.000-1.030) Urine Protein (Negative) Urine Glucose (UA) (Negative) Urine Ketones (Negative) Urine Blood (Negative) Urine Nitrite (Negative) Urine Bilirubin (Negative) Urine Urobilinogen (Negative) Ur Leukocyte Esterase (Negative) Acetaminophen Cancelled VALE Screen Anti-Mitochondrial Ab Anti-Smooth Muscle Ab COVID-19 Eval Order SARS-CoV-2 (PCR) (Negative) CMV IgM Ab CMV IgG Ab/TORCH Hepatitis A IgM Ab Hep Bs Antigen (Neg) Hep B Core IgM Ab Hepatitis C Antibody (Neg) HSV I IgG Ab HSV I IgM TORCH HSV II IgG HSV II IgM TORCH Influenza Type A (PCR) (Neg) Influenza Type B (PCR) (Neg) RSV (RT-PCR) (Neg) Group A Strep (PCR) NOT DETECTED (NotDetected) Miscellaneous Test 09/21/20 09/21/20 09/21/20 Range/Units 14:10 12:02 12:02 WBC (4.8-10.8) K/uL RBC (4.7-6.1) M/uL Hgb (14.0-18.0) g/dL Hct (42-52) % MCV (80-100) fL MCH (25-34) pg MCHC (32-36) g/dL RDW Std Deviation (36.4-46.3) fL RDW Coeff of Tamiko (11.5-14.5) % Plt Count (130-400) K/uL MPV (7.4-10.4) fL Neutrophils % (Manual) 14.3 % Lymphocytes % (Manual) 2.7 % Reactive Lymphs % (Man) 79.4 % Monocytes % (Manual) 1.8 % Myelocytes % (Man) 1.8 % Neutrophils # (Manual) 2.59 (1.4-6.5) K/uL Total Absolute Neuts 2.59 (1.4-6.5) K/uL Lymphocytes # (Manual) 0.49 L (1.2-3.4) K/uL Reactive Lymphs # 14.37 K/uL Total Abs Lymphocytes 14.86 H (1.2-3.4) K/uL Monocytes # (Manual) 0.33 (0.11-0.59) K/uL Myelocytes # (Manual) 0.33 H (0-0) K/uL Toxic Vacuolation 2+ PT (9.0-12.0) Seconds INR (0.9-1.1) Sodium 132 L (136-145) mmol/L Potassium 4.7 (3.5-5.1) mmol/L Chloride 99 (98-107) mmol/L Carbon Dioxide 27 (21-32) mmol/L Anion Gap 6.0 (3-11) BUN 9 (7-18) mg/dl Creatinine 0.97 (0.6-1.4) mg/dl Est Cr Clr Drug Dosing 145.4 ml/min Est GFR ( Amer) 127.9 Est GFR (Non-Af Amer) 110.4 BUN/Creatinine Ratio 9.4 L (10-20) Glucose 77 (70-99) mg/dl Calcium 8.4 L (8.5-10.1) mg/dl Total Bilirubin 7.4 H (0.2-1) mg/dl Direct Bilirubin (0-0.2) mg/dl AST 369 H (15-37) U/L ALT 425 H (12-78) U/L Alkaline Phosphatase 665 H (45-117) U/L Total Protein 6.6 (6.4-8.2) gm/dl Albumin 2.8 L (3.4-5.0) gm/dl Globulin 3.8 (2.5-4.0) gm/dl Albumin/Globulin Ratio 0.7 L (0.9-2) Lipase 158 (73-393) U/L Urine Color Dark Yellow Urine Appearance Clear (Clear) Urine pH 5.5 (4.5-7.5) Ur Specific Sumner 1.034 H (1.000-1.030) Urine Protein Negative (Negative) Urine Glucose (UA) Negative (Negative) Urine Ketones 1+ H (Negative) Urine Blood Negative (Negative) Urine Nitrite Negative (Negative) Urine Bilirubin 1+ H (Negative) Urine Urobilinogen Negative (Negative) Ur Leukocyte Esterase Negative (Negative) Acetaminophen VALE Screen Anti-Mitochondrial Ab Anti-Smooth Muscle Ab COVID-19 Eval Order SARS-CoV-2 (PCR) (Negative) CMV IgM Ab CMV IgG Ab/TORCH Hepatitis A IgM Ab Hep Bs Antigen (Neg) Hep B Core IgM Ab Hepatitis C Antibody (Neg) HSV I IgG Ab HSV I IgM TORCH HSV II IgG HSV II IgM TORCH Influenza Type A (PCR) (Neg) Influenza Type B (PCR) (Neg) RSV (RT-PCR) (Neg) Group A Strep (PCR) (NotDetected) Miscellaneous Test Diagnostic Findings CTAP: Lower chest: There are bibasilar airspace opacities statistically atelectatic. There are small bilateral pleural effusions Liver: The contrast-enhanced liver is normal in size, contour, and attenuation. There is no intrahepatic biliary ductal dilatation. The hepatic veins and portal veins are patent. Gallbladder: Contracted with mild pericholecystic fluid. Spleen: Enlarged measuring 21 cm. There is minimal perisplenic fluid. Pancreas: Unremarkable. Adrenal glands: Unremarkable. Kidneys: There is symmetric renal cortical enhancement. The kidneys are normal in size without hydronephrosis. Bowel: There are no transition zones indicate bowel obstruction. There is no evidence of acute diverticulitis. There is no evidence of acute appendicitis. Peritoneum: There is trace free pelvic fluid. There is no free intraperitoneal air. Vasculature: The abdominal aorta is normal in course and caliber. Adenopathy: Shotty mesenteric lymph nodes are likely reactive. Pelvic viscera: The bladder, and pelvic viscera are unremarkable. Skeletal structures: No destructive osseous lesions are seen. IMPRESSION: 1. No evidence of bowel obstruction. No evidence of free air 2. Small bilateral pleural effusions with basilar opacities likely atelectatic 3. Normal appendix. No evidence of acute diverticulitis 4. Moderate splenomegaly (21 cm). No current evidence of splenic rupture 5. Low volume ascites with minimal pericholecystic fluid, left perirenal fluid, perisplenic fluid, and minimal pelvic fluid 6. Mildly prominent mesenteric lymph nodes, likely reactive CTA Chest: CTA: The heart is normal in size. Trace pericardial effusion. No thoracic aortic aneurysm or dissection. Respiratory motion artifact and contrast bolus timing limits evaluation of the pulmonary artery. The segmental and subsegmental branch es are not well visualized. No central pulmonary emboli are identified. CT CHEST: Unremarkable thyroid. Residual thymic tissue anterior mediastinum. Mildly enlarged mediastinal and hilar lymph nodes measure up to approximately 10 mm. Axillary chain lymph nodes measure up to 12 mm. Small pleural effusions. No pneumothorax. Dependent bibasilar groundglass and linear consolidative opacities. 4 mm fissural nodule of the left upper lung, image 213. 4 mm solid nodule of the lingula, image 131. A few additional small fissural nodules are seen bilaterally measuring up to 3 mm suggestive of probable benign lymph nodes. Central airways are patent. No pneumoperitoneum. Splenomegaly with trace perisplenic ascites. Mild generalized body wall edema. There is no acute fracture or suspicious bone lesi on. Mild mid thoracic dextroscoliosis. IMPRESSION: 1. Limited evaluation of the pulmonary artery as above. No central pulmonary emboli identified. 2. Small pleural effusions with mild bibasilar opacities suggestive of atelectasis. 3. Mild mediastinal, hilar and axillary chain adenopathy, possibly reactive considering the patient's reported history of mononucleosis. This finding in conjunction with the splenomegaly should be followed to exclude a lymphoproliferative disorder.
[2020-09-22 12:51] LABS: INR 1.2 (0.9-1.1); Prothrombin Time 11.7 Seconds (9.0-12.0)
[2020-09-22 13:12] LABS: Albumin Level 2.3 gm/dl (3.4-5.0); Bilirubin Direct 5.3 mg/dl (0-0.2); Bilirubin,Total 6.6 mg/dl (0.2-1); Total Protein 5.7 gm/dl (6.4-8.2)
--- NOTE | 2020-09-22 14:37 | Hospitalist Progress Note ---
Date of Service September 22, 2020 Assessment & Plan (1) Elevated LFTs: (2) Mononucleosis: (3) Mononucleosis, infectious, with hepatitis: Hepatitis likely secondary to mononucleosis Viral Sepsis-POA secondary to infectious mononucleosis Tested positive September 14, EBV plus mononucleosis -CT ABD: Moderate splenomegaly. Low volume ascites with minimal pericholecystic fluid, left peritoneal fluid, perisplenic fluid, and minimal pelvic fluid. Mildly prominent mesenteric lymph nodes, likely reactive. -Covid screen negative -Serological work-up pending Received acetylcysteine as per GI Continue to monitor LFTs, INR Avoid hepatotoxic agents Continue supportive care with IV fluids, pain control Appreciate GI input DVT Px: SCDs , ambulation Code: Full Admission and Anticipated Discharge Date Admission Date: September 21, 2020 Subjective Patient is seen and examined at bedside States feeling slightly better today Dyspnea, abdominal pain slightly improved Continues to have poor appetite Denies chest pain, dizziness, nausea Afebrile today Offers no other complaints Review of Systems Review of Systems: All systems reviewed & are unremarkable except as noted in HPI & below Physical Exam Physical Exam: Physical Exam: Vitals signs as noted above General Appearance:Moderately built and nourished, no apparent distress Head: normocephalic, Atraumatic Eyes: normal inspection, EOMI, +Icteric Neck: supple, Trachea midline Respiratory/Chest: Normal breath sounds, CTA Cardiovascular: S1, S2, No murmur Abdomen/GI:Soft, No significant tenderness, Bowel sounds present Extremities/Musculoskelatal:normal inspection, no edema Neurologic/Psych:AAOX3, grossly no focal neurological deficits Skin: normal color, warm, +Jaundice Results & Data Results & Data ([facility]) Vital Signs (Past 12 Hours) Vital Signs Temp Pulse Pulse Resp BP Pulse Ox 09/22/20 11:58 37.3 C 93 H 20 112/72 98 09/22/20 07:36 36.4 C L 79 18 112/70 94 09/22/20 07:00 97 H 09/22/20 04:34 37.2 C 92 H 18 107/69 94 09/22/20 02:50 110 H Laboratory Results Short CBC 09/22/20 Range/Units 06:13 WBC 16.39 H (4.8-10.8) K/uL Hgb 12.4 L (14.0-18.0) g/dL Hct 35.6 L (42-52) % Plt Count 178 (130-400) K/uL BMP 09/22/20 06:13 Sodium 132 L Potassium 4.4 Chloride 101 Carbon Dioxide 25 BUN 8 Creatinine 0.89 Glucose 94 Calcium 7.5 L Liver Function 09/22/20 09/22/20 Range/Units 00:49 12:22 Total Bilirubin 7.0 H 6.6 H (0.2-1) mg/dl Direct Bilirubin 5.2 H 5.3 H (0-0.2) mg/dl AST 285 H 305 H (15-37) U/L ALT 352 H 351 H (12-78) U/L Alkaline Phosphatase 635 H 584 H (45-117) U/L Albumin 2.4 L 2.3 L (3.4-5.0) gm/dl Urine 09/21/20 Range/Units 14:10 Urine Color Dark Yellow Urine Appearance Clear (Clear) Urine pH 5.5 (4.5-7.5) Ur Specific [place] 1.034 H (1.000-1.030) Urine Protein Negative (Negative) Urine Glucose (UA) Negative (Negative)
[2020-09-23 01:03] LABS: INR 1.1 (0.9-1.1)
[2020-09-23 01:25] LABS: Albumin Level 2.4 gm/dl (3.4-5.0); Bilirubin Direct 5.8 mg/dl (0-0.2); Bilirubin,Total 7.3 mg/dl (0.2-1); Total Protein 5.7 gm/dl (6.4-8.2)
[2020-09-23] MEDS: SODIUM CHLORIDE 0.9% 1000ML 1,000 ML IV SCH ×3 (01:39→22:12)
[2020-09-23] MEDS: HYDROmorphone INJ 0.5 MG/0.5 ML SYR IV PRN ×7 (02:31→22:12)
[2020-09-23 07:25] LABS: Albumin Level 2.4 gm/dl (3.4-5.0); BUN Creatinine Ratio 7.4 (10-20); Calcium 7.9 mg/dl (8.5-10.1); Est GFR (African American) 142.7; Est GFR (Non-African American) 123.1; Magnesium 1.9 mg/dl (1.8-2.4); Potassium 4.4 mmol/L (3.5-5.1)
[2020-09-23 07:26] LABS: Albumin Globulin Ratio 0.8 (0.9-2); Bilirubin,Total 7.2 mg/dl (0.2-1); Globulin 3.2 gm/dl (2.5-4.0); Total Protein 5.6 gm/dl (6.4-8.2)
[2020-09-23 07:32] LABS: Hematocrit (blood only) 35.5 % (42-52); Hemoglobin 12.2 g/dL (14.0-18.0); Mean Corpuscular Hemoglobin 28.8 pg (25-34); Mean Corpuscular Hgb Conc 34.4 g/dL (32-36); Mean Corpuscular Volume 83.9 fL (80-100); Mean Platelet Volume 10.2 fL (7.4-10.4); Platelet Count 171 K/uL (130-400); RDW Coefficient of Variation 14.9 % (11.5-14.5); Red Blood Count 4.23 M/uL (4.7-6.1); White Blood Count 14.89 K/uL (4.8-10.8)
[2020-09-23 07:49] LABS: ALC (manual) 12.54 K/uL (1.2-3.4); ANC (manual) 1.83 K/uL (1.4-6.5); Lymphocytes # (manual) 0.91 K/uL (1.2-3.4); Lymphocytes % (manual) 6.1 %; Monocytes # (manual) 0.39 K/uL (0.11-0.59); Monocytes % (manual) 2.6 %; Myelocytes # (manual) 0.13 K/uL (0-0); Myelocytes % (manual) 0.9 %; Neutrophils # (manual) 1.83 K/uL (1.4-6.5); Neutrophils % (manual) 12.3 %; Reactive Lymphocytes # (manual) 11.63 K/uL; Reactive Lymphocytes % (manual) 78.1 %; Smudge Cells Present; Toxic Vacuolation 2+
[2020-09-23] MEDS ORDERED: CHLORASEPTIC 1.4% SOLN 180 ML BTL MT PRN (13:09)
--- NOTE | 2020-09-23 13:24 | Gastroenterology Progress Note ---
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 Fortunately with no biliary obstruction seen on CT. He has no symptoms of encephalopathy, and synthetic liver function including INR is WNL; he is not in hepatic failure. LFTs and WBC trending down very slowly. Hep B sAG negative however the rest of his serologies are pending. He is tolerating light diet. Appears fatigued as expected, obviously jaundiced, but abd soft, hemodynamically stable. - Await full viral hepatitis panel, also HSV, CMV, ASMA, AMA, VALE panel - Trend LFTs, CBC, INR and mental status closely - Factor VII pending to evaluate synthetic liver function - Diet as tolerated; recommend soft diet with sore throat and small frequent meals, adequate hydration - Supportive care with fluids, analgesia as needed - Would avoid Tylenol, NSAIDs - He completed full NAC 21-hour protocol - Needs to avoid ETOH and contact sports until - We discussed overall, with supportive care and time, his symptoms and overall course should begin to improve, albeit slowly - He should follow-up with GI as an outpt (either here in [place] or closer to his school, perhaps [facility]) to monitor his progress Admission and Anticipated Discharge Date Admission Date: September 21, 2020 Supervising Physician Co-Signing Physician Notes Attending attestation I have seen, examined this patient, and agree with the findings and above by our mid-level provider Ms. Caren Brambila, with the following additions: -LFT's mimimally improved -clinically a bit better -follow serologies -close outpt f/u at d/c Subjective Patient seen and examined, chart reviewed. Pt doing about the same as yesterday; last night had no fevers for first time since being sick, however has a low-grade temp today. Tolerating small amts of food at a time; still with sore throat, LUQ abd discomfort, fatigue, malaise, headache, jaundice. Denies n/v, CP, SOB, melena, hematochezia. Review of Systems Review of Systems: All systems reviewed & are unremarkable except as noted in HPI & below Physical Exam Constitutional: well developed + ill appearing but NAD Respiratory: normal respiratory effort, lungs clear to auscultation Cardiovascular: Rate/Rhythm: regular rate Gastrointestinal (Abdomen): Inspection/Auscultation: abdomen normal to inspection Percussion/Palpation: + guarding and abdomen soft; abdomen nontender + fulllness to the left flank/LUQ c/w splenomegaly Skin: + jaundice; no rashes Psychiatric: A+Ox3, euthymic affect Results & Data ([facility]) Vital Signs (Past 12 Hours) Vital Signs Temp Pulse Resp BP Pulse Ox 09/23/20 11:19 37.7 C H 89 20 111/65 95 09/23/20 07:45 37.2 C 97 H 18 113/68 94 09/23/20 03:31 37.1 C 95 H 14 114/70 95 Laboratory Results 09/23/20 09/23/20 09/23/20 Range/Units 06:11 06:11 00:37 WBC 14.89 H (4.8-10.8) K/uL RBC 4.23 L (4.7-6.1) M/uL Hgb 12.2 L (14.0-18.0) g/dL Hct 35.5 L (42-52) % MCV 83.9 (80-100) fL MCH 28.8 (25-34) pg MCHC 34.4 (32-36) g/dL RDW Std Deviation 45.0 (36.4-46.3) fL RDW Coeff of Tamiko 14.9 H (11.5-14.5) % Plt Count 171 (130-400) K/uL MPV 10.2 (7.4-10.4) fL Neutrophils % (Manual) 12.3 % Lymphocytes % (Manual) 6.1 % Reactive Lymphs % (Man) 78.1 % Monocytes % (Manual) 2.6 % Myelocytes % (Man) 0.9 % Neutrophils # (Manual) 1.83 (1.4-6.5) K/uL Total Absolute Neuts 1.83 (1.4-6.5) K/uL Lymphocytes # (Manual) 0.91 L (1.2-3.4) K/uL Reactive Lymphs # 11.63 K/uL Total Abs Lymphocytes 12.54 H (1.2-3.4) K/uL Monocytes # (Manual) 0.39 (0.11-0.59) K/uL Myelocytes # (Manual) 0.13 H (0-0) K/uL Smudge Cells Present Toxic Vacuolation 2+ PT (9.0-12.0) Seconds INR (0.9-1.1) Factor VII Sodium 130 L (136-145) mmol/L Potassium 4.4 (3.5-5.1) mmol/L Chloride 99 (98-107) mmol/L Carbon Dioxide 27 (21-32) mmol/L Anion Gap 4.0 (3-11) BUN 6 L (7-18) mg/dl Creatinine 0.86 (0.6-1.4) mg/dl Est Cr Clr Drug Dosing 164.0 ml/min Est GFR ( Amer) 142.7 Est GFR (Non-Af Amer) 123.1 BUN/Creatinine Ratio 7.4 L (10-20) Glucose 80 (70-99) mg/dl Calcium 7.9 L (8.5-10.1) mg/dl Magnesium 1.9 (1.8-2.4) mg/dl Total Bilirubin 7.2 H 7.3 H (0.2-1) mg/dl Direct Bilirubin 5.8 H (0-0.2) mg/dl AST 325 H 337 H (15-37) U/L ALT 357 H 368 H (12-78) U/L Alkaline Phosphatase 555 H 581 H (45-117) U/L Total Protein 5.6 L 5.7 L (6.4-8.2) gm/dl Albumin 2.4 L 2.4 L (3.4-5.0) gm/dl Globulin 3.2 (2.5-4.0) gm/dl Albumin/Globulin Ratio 0.8 L (0.9-2) Miscellaneous Test 09/23/20 09/22/20 09/21/20 Range/Units 00:37 13:33 16:27 WBC (4.8-10.8) K/uL RBC (4.7-6.1) M/uL Hgb (14.0-18.0) g/dL Hct (42-52) % MCV (80-100) fL MCH (25-34) pg MCHC (32-36) g/dL RDW Std Deviation (36.4-46.3) fL RDW Coeff of Tamiko (11.5-14.5) % Plt Count (130-400) K/uL MPV (7.4-10.4) fL Neutrophils % (Manual) % Lymphocytes % (Manual) % Reactive Lymphs % (Man) % Monocytes % (Manual) % Myelocytes % (Man) % Neutrophils # (Manual) (1.4-6.5) K/uL Total Absolute Neuts (1.4-6.5) K/uL Lymphocytes # (Manual) (1.2-3.4) K/uL Reactive Lymphs # K/uL Total Abs Lymphocytes (1.2-3.4) K/uL Monocytes # (Manual) (0.11-0.59) K/uL Myelocytes # (Manual) (0-0) K/uL Smudge Cells Toxic Vacuolation PT 11.0 (9.0-12.0) Seconds INR 1.1 (0.9-1.1) Factor VII Pending Sodium (136-145) mmol/L Potassium (3.5-5.1) mmol/L Chloride (98-107) mmol/L Carbon Dioxide (21-32) mmol/L Anion Gap (3-11) BUN (7-18) mg/dl Creatinine (0.6-1.4) mg/dl Est Cr Clr Drug Dosing ml/min Est GFR ( Amer) Est GFR (Non-Af Amer) BUN/Creatinine Ratio (10-20) Glucose (70-99) mg/dl Calcium (8.5-10.1) mg/dl Magnesium (1.8-2.4) mg/dl Total Bilirubin (0.2-1) mg/dl Direct Bilirubin (0-0.2) mg/dl AST (15-37) U/L ALT (12-78) U/L Alkaline Phosphatase (45-117) U/L Total Protein (6.4-8.2) gm/dl Albumin (3.4-5.0) gm/dl Globulin (2.5-4.0) gm/dl Albumin/Globulin Ratio (0.9-2) Miscellaneous Test REPORT
[2020-09-23 14:24] LABS: INR 1.1 (0.9-1.1); Prothrombin Time 11.1 Seconds (9.0-12.0)
[2020-09-23 15:10] LABS: Albumin Level 2.4 gm/dl (3.4-5.0); Bilirubin,Total 7.4 mg/dl (0.2-1); Total Protein 5.8 gm/dl (6.4-8.2)
[2020-09-23] MEDS ORDERED: DOCUSATE SODIUM 100 MG CAP PO PRN (15:40)
[2020-09-23] MEDS: POLYETHYLENE (MIRALAX) 17 GM PACK PO PRN (16:00)
--- NOTE | 2020-09-23 16:03 | Hospitalist Progress Note ---
Date of Service September 23, 2020 Assessment & Plan (1) Elevated LFTs: (2) Mononucleosis: (3) Mononucleosis, infectious, with hepatitis: Hepatitis likely secondary to mononucleosis Viral Sepsis-POA secondary to infectious mononucleosis Tested positive September 14, EBV plus mononucleosis -CT ABD: Moderate splenomegaly. Low volume ascites with minimal pericholecystic fluid, left peritoneal fluid, perisplenic fluid, and minimal pelvic fluid. Mildly prominent mesenteric lymph nodes, likely reactive. -Covid screen negative -Serological work-up pending Received acetylcysteine as per GI Continue to monitor LFTs, INR Avoid hepatotoxic agents Continue supportive care with IV fluids, pain control Appreciate GI input Also discussed with [facility] [employer] [facility] at [facility] Continue to monitor LFTs Needs to avoid Contact sports until cleared by GI Needs follow up with GI upon discharge Hyponatremia Decrease IV fluids Monitor Will consider Nephrology eval if needed Constipation Started on Bowel regimen Minimize Narcotic pain meds as able DVT Px: SCDs , ambulation Code: Full Admission and Anticipated Discharge Date Admission Date: September 21, 2020 Subjective Patient is seen and examined at bedside States having sore throat and constipated Appetite remains poor Abdominal pain slightly better Low grade fever this morning Denies chest pain, dizziness, nausea Review of Systems Review of Systems: All systems reviewed & are unremarkable except as noted in HPI & below Physical Exam Physical Exam: Physical Exam: Vitals signs as noted above General Appearance:Moderately built and nourished, no apparent distress Head: normocephalic, Atraumatic Eyes: normal inspection, EOMI, +Icteric Neck: supple, Trachea midline Respiratory/Chest: Normal breath sounds, CTA Cardiovascular: S1, S2, No murmur Abdomen/GI:Soft, No significant tenderness, Bowel sounds present Extremities/Musculoskelatal:normal inspection, no edema Neurologic/Psych:AAOX3, grossly no focal neurological deficits Skin: normal color, warm, +Jaundice Results & Data Results & Data ([facility]) Vital Signs (Past 12 Hours) Vital Signs Temp Pulse Resp BP Pulse Ox 09/23/20 15:18 36.7 C 90 18 111/70 94 09/23/20 11:19 37.7 C H 89 20 111/65 95 09/23/20 07:45 37.2 C 97 H 18 113/68 94 Laboratory Results Short CBC 09/23/20 Range/Units 06:11 WBC 14.89 H (4.8-10.8) K/uL Hgb 12.2 L (14.0-18.0) g/dL Hct 35.5 L (42-52) % Plt Count 171 (130-400) K/uL BMP 09/23/20 06:11 Sodium 130 L Potassium 4.4 Chloride 99 Carbon Dioxide 27 BUN 6 L Creatinine 0.86 Glucose 80 Calcium 7.9 L Liver Function 09/23/20 09/23/20 09/23/20 Range/Units 00:37 06:11 14:03 Total Bilirubin 7.3 H 7.2 H 7.4 H (0.2-1) mg/dl Direct Bilirubin 5.8 H 6.0 H (0-0.2) mg/dl AST 337 H 325 H 318 H (15-37) U/L ALT 368 H 357 H 352 H (12-78) U/L Alkaline Phosphatase 581 H 555 H 589 H (45-117) U/L Albumin 2.4 L 2.4 L 2.4 L (3.4-5.0) gm/dl
[2020-09-24] MEDS: HYDROmorphone INJ 0.5 MG/0.5 ML SYR IV PRN ×5 (01:29→22:35)
[2020-09-24] MEDS ORDERED: ACETAMINOPHEN 325 MG TAB PO STA (02:18)
[2020-09-24] MEDS ORDERED: MAGNESIUM SULFATE / D5W 1 GM/100 ML BAG IV ONE (02:19)
[2020-09-24] MEDS ORDERED: ALBUMIN 25% 12.5 GM/50 ML VIAL IV ONE (02:20)
[2020-09-24 04:19] LABS: INR 1.1 (0.9-1.1); Prothrombin Time 11.1 Seconds (9.0-12.0)
[2020-09-24 04:30] LABS: Albumin Level 2.5 gm/dl (3.4-5.0); BUN Creatinine Ratio 12.2 (10-20); Calcium 7.7 mg/dl (8.5-10.1); Creatinine Clr Calc Pharmacy 178.5 ml/min; Est GFR (African American) 147.7; Est GFR (Non-African American) 127.5; Magnesium 2.1 mg/dl (1.8-2.4); Potassium 4.2 mmol/L (3.5-5.1)
[2020-09-24 04:39] LABS: Albumin Globulin Ratio 0.8 (0.9-2); Bilirubin,Total 7.5 mg/dl (0.2-1); Globulin 3.3 gm/dl (2.5-4.0); Total Protein 5.8 gm/dl (6.4-8.2)
[2020-09-24] MEDS: guaiFENesin 600 MG TABCR PO SCH ×2 (04:56→22:05)
[2020-09-24] MEDS ORDERED: SODIUM CHLORIDE 0.9% 1000ML 1,000 ML IV ONE (05:00)
[2020-09-24 05:11] LABS: Hematocrit (blood only) 34.1 % (42-52); Hemoglobin 11.9 g/dL (14.0-18.0); Mean Corpuscular Hemoglobin 28.1 pg (25-34); Mean Corpuscular Hgb Conc 34.9 g/dL (32-36); Mean Corpuscular Volume 80.4 fL (80-100); Mean Platelet Volume 10.9 fL (7.4-10.4); Platelet Count 153 K/uL (130-400); RDW Coefficient of Variation 14.8 % (11.5-14.5); RDW Standard Deviation 43.3 fL (36.4-46.3); Red Blood Count 4.24 M/uL (4.7-6.1)
[2020-09-24 05:45] LABS: ALC (manual) 11.77 K/uL (1.2-3.4); ANC (manual) 2.03 K/uL (1.4-6.5); Eosinophils # (manual) 0.13 K/uL (0-0.5); Eosinophils % (manual) 0.9 %; Lymphocytes # (manual) 4.86 K/uL (1.2-3.4); Lymphocytes % (manual) 33.3 %; Monocytes # (manual) 0.67 K/uL (0.11-0.59); Monocytes % (manual) 4.6 %; Neutrophils # (manual) 2.03 K/uL (1.4-6.5); Neutrophils % (manual) 13.9 %; Reactive Lymphocytes # (manual) 6.91 K/uL; Reactive Lymphocytes % (manual) 47.3 %; Rouleaux 1+
--- NOTE | 2020-09-24 08:02 | XRay Report ---
XR chest 1V portable CLINICAL HISTORY: Shortness of breath. COMPARISON STUDY: Chest radiograph April 17, 2016. Chest CT September 21, 2020. FINDINGS: Lung volumes are mildly diminished. No pneumothorax or pleural effusion is identified. Mild bibasilar opacities are present with there is no evidence for pulmonary edema. Cardiac size is tamiko l. IMPRESSION: Low lung volumes with bibasilar opacities that favor atelectasis. ACT 112: Negative or not required by law. Electronically signed by: Rex Harris M.D. 09/24/2020 8:01 AM
[2020-09-24] MEDS: POLYETHYLENE (MIRALAX) 17 GM PACK PO PRN (11:33)
--- NOTE | 2020-09-24 14:40 | Gastroenterology Progress Note ---
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 Fortunately with no biliary obstruction seen on CT. He has no symptoms of encephalopathy, and synthetic liver function including INR is WNL; he is not in hepatic failure. LFTs and WBC trending down very slowly. Hep B sAG negative however the rest of his serologies are pending. He is tolerating a regular diet. Appears fatigued as expected, obviously jaundiced, but abd soft, hemodynamically stable. Overall he feels slightly better today than yesterday. - Await full viral hepatitis panel, also HSV, CMV, ASMA, AMA, VALE panel - Trend LFTs, CBC, INR and mental status closely - Factor VII pending to evaluate synthetic liver function - Diet as tolerated; recommend soft diet with sore throat and small frequent meals, adequate hydration - Supportive care with fluids, analgesia as needed - Would avoid Tylenol, NSAIDs - He completed full NAC 21-hour protocol - Needs to avoid ETOH and contact sports until - We discussed overall, with supportive care and time, his symptoms and overall course should begin to improve, albeit slowly - He should follow-up with GI as an outpt (either here in [place] or closer to his school, perhaps [facility]) to monitor his progress Admission and Anticipated Discharge Date Admission Date: September 21, 2020 Supervising Physician Co-Signing Physician Notes I saw and evaluated the patient, liver enzymes seem to be stable for the present time. For the present we would recommend use of IV hydration watchful waiting. Should the patient develop hepatic encephalopathy or coagulopathy would then recommend urgent transfer to a transplant center Subjective Patient seen and examined, chart reviewed. Doing slightly better today; not as feverish, aches/pains a little better; eating better. Very slow improvement in LFTs, tbili 7.5, leukocytosis slowly improving. INR remains WNL. Denies n/v, hematemesis, melena, CP, SOB, hematochezia, confusion, falls. Review of Systems Constitutional: + fatigue Eyes: icterus Ear, Nose, Mouth, Throat: sore throat; denies difficulty swallowing Gastrointestinal: As per HPI. Musculoskeletal: + myalgia and + body aches Integumentary: Intermittent diffuse rash, not for the last week Hematologic / Lymphatic: + lymphadenopathy; no easy bleeding, no easy bruising and no coagulopathy Physical Exam Constitutional: well developed fatigued Respiratory: normal respiratory effort, lungs clear to auscultation Cardiovascular: RRR, no murmur, no edema Rate/Rhythm: regular rate Gastrointestinal (Abdomen): Inspection/Auscultation: normal bowel sounds Percussion/Palpation: abdomen soft; abdomen nontender Skin: + jaundice; no rashes Psychiatric: A+Ox3, euthymic affect Results & Data ([facility]) Vital Signs (Past 12 Hours) Vital Signs Temp Pulse Pulse Resp BP Pulse Ox 09/24/20 12:31 36.8 C 93 H 18 108/67 98 09/24/20 09:42 90 09/24/20 08:27 36.7 C 75 18 109/68 98 09/24/20 04:30 101 H 09/24/20 03:33 37.1 C 91 H 19 108/55 L 93 09/24/20 02:52 38 C H 95 H 18 95/60 L 96 Laboratory Results 09/24/20 09/24/20 09/24/20 Range/Units 03:57 03:44 03:44 WBC (4.8-10.8) K/uL RBC (4.7-6.1) M/uL Hgb (14.0-18.0) g/dL Hct (42-52) % MCV (80-100) fL MCH (25-34) pg MCHC (32-36) g/dL RDW Std Deviation (36.4-46.3) fL RDW Coeff of Tamiko (11.5-14.5) % Plt Count (130-400) K/uL MPV (7.4-10.4) fL Neutrophils % (Manual) % Lymphocytes % (Manual) % Reactive Lymphs % (Man) % Monocytes % (Manual) % Eosinophils % (Manual) % Neutrophils # (Manual) (1.4-6.5) K/uL Total Absolute Neuts (1.4-6.5) K/uL Lymphocytes # (Manual) (1.2-3.4) K/uL Reactive Lymphs # K/uL Total Abs Lymphocytes (1.2-3.4) K/uL Monocytes # (Manual) (0.11-0.59) K/uL Eosinophils # (Manual) (0-0.5) K/uL Rouleaux Peripher Smr Path Cons PT (9.0-12.0) Seconds INR (0.9-1.1) Sodium (136-145) mmol/L Potassium (3.5-5.1) mmol/L Chloride (98-107) mmol/L Carbon Dioxide (21-32) mmol/L Anion Gap (3-11) BUN (7-18) mg/dl Creatinine (0.6-1.4) mg/dl Est Cr Clr Drug Dosing ml/min Est GFR ( Amer) Est GFR (Non-Af Amer) BUN/Creatinine Ratio (10-20) Glucose (70-99) mg/dl Lactate 0.8 (0.4-2.0) mmol/L Calcium (8.5-10.1) mg/dl Magnesium (1.8-2.4) mg/dl Total Bilirubin (0.2-1) mg/dl Direct Bilirubin (0-0.2) mg/dl AST (15-37) U/L ALT (12-78) U/L Alkaline Phosphatase (45-117) U/L Total Protein (6.4-8.2) gm/dl Albumin (3.4-5.0) gm/dl Globulin (2.5-4.0) gm/dl Albumin/Globulin Ratio (0.9-2) Procalcitonin (0-0.5) ng/ml TSH 4.910 H (0.300-4.500) uIu/ml COVID-19 Eval Order SARS-CoV-2, RNA, NAAT (NEGATIVE) Flow Cytometry Comment Pending 09/24/20 09/24/20 09/24/20 Range/Units 03:44 03:44 03:44 WBC 14.60 H (4.8-10.8) K/uL RBC 4.24 L (4.7-6.1) M/uL Hgb 11.9 L (14.0-18.0) g/dL Hct 34.1 L (42-52) % MCV 80.4 (80-100) fL MCH 28.1 (25-34) pg MCHC 34.9 (32-36) g/dL RDW Std Deviation 43.3 (36.4-46.3) fL RDW Coeff of Tamiko 14.8 H (11.5-14.5) % Plt Count 153 (130-400) K/uL MPV 10.9 H (7.4-10.4) fL Neutrophils % (Manual) 13.9 % Lymphocytes % (Manual) 33.3 % Reactive Lymphs % (Man) 47.3 % Monocytes % (Manual) 4.6 % Eosinophils % (Manual) 0.9 % Neutrophils # (Manual) 2.03 (1.4-6.5) K/uL Total Absolute Neuts 2.03 (1.4-6.5) K/uL Lymphocytes # (Manual) 4.86 H (1.2-3.4) K/uL Reactive Lymphs # 6.91 K/uL Total Abs Lymphocytes 11.77 H (1.2-3.4) K/uL Monocytes # (Manual) 0.67 H (0.11-0.59) K/uL Eosinophils # (Manual) 0.13 (0-0.5) K/uL Rouleaux 1+ Peripher Smr Path Cons PT (9.0-12.0) Seconds INR (0.9-1.1) Sodium 130 L (136-145) mmol/L Potassium 4.2 (3.5-5.1) mmol/L Chloride 99 (98-107) mmol/L Carbon Dioxide 26 (21-32) mmol/L Anion Gap 5.0 (3-11) BUN 10 (7-18) mg/dl Creatinine 0.79 (0.6-1.4) mg/dl Est Cr Clr Drug Dosing 178.5 ml/min Est GFR ( Amer) 147.7 Est GFR (Non-Af Amer) 127.5 BUN/Creatinine Ratio 12.2 (10-20) Glucose 94 (70-99) mg/dl Lactate (0.4-2.0) mmol/L Calcium 7.7 L (8.5-10.1) mg/dl Magnesium 2.1 (1.8-2.4) mg/dl Total Bilirubin 7.5 H (0.2-1) mg/dl Direct Bilirubin (0-0.2) mg/dl AST 286 H (15-37) U/L ALT 326 H (12-78) U/L Alkaline Phosphatase 567 H (45-117) U/L Total Protein 5.8 L (6.4-8.2) gm/dl Albumin 2.5 L (3.4-5.0) gm/dl Globulin 3.3 (2.5-4.0) gm/dl Albumin/Globulin Ratio 0.8 L (0.9-2) Procalcitonin 0.07 (0-0.5) ng/ml TSH (0.300-4.500) uIu/ml COVID-19 Eval Order SARS-CoV-2, RNA, NAAT (NEGATIVE) Flow Cytometry Comment 09/24/20 09/24/20 09/24/20 Range/Units 03:44 03:30 03:30 WBC (4.8-10.8) K/uL RBC (4.7-6.1) M/uL Hgb (14.0-18.0) g/dL Hct (42-52) % MCV (80-100) fL MCH (25-34) pg MCHC (32-36) g/dL RDW Std Deviation (36.4-46.3) fL RDW Coeff of Tamiko (11.5-14.5) % Plt Count (130-400) K/uL MPV (7.4-10.4) fL Neutrophils % (Manual) % Lymphocytes % (Manual) % Reactive Lymphs % (Man) % Monocytes % (Manual) % Eosinophils % (Manual) % Neutrophils # (Manual) (1.4-6.5) K/uL Total Absolute Neuts (1.4-6.5) K/uL Lymphocytes # (Manual) (1.2-3.4) K/uL Reactive Lymphs # K/uL Total Abs Lymphocytes (1.2-3.4) K/uL Monocytes # (Manual) (0.11-0.59) K/uL Eosinophils # (Manual) (0-0.5) K/uL Rouleaux Peripher Smr Path Cons PT 11.1 (9.0-12.0) Seconds INR 1.1 (0.9-1.1) Sodium (136-145) mmol/L Potassium (3.5-5.1) mmol/L Chloride (98-107) mmol/L Carbon Dioxide (21-32) mmol/L Anion Gap (3-11) BUN (7-18) mg/dl Creatinine (0.6-1.4) mg/dl Est Cr Clr Drug Dosing ml/min Est GFR ( Amer) Est GFR (Non-Af Amer) BUN/Creatinine Ratio (10-20) Glucose (70-99) mg/dl Lactate (0.4-2.0) mmol/L Calcium (8.5-10.1) mg/dl Magnesium (1.8-2.4) mg/dl Total Bilirubin (0.2-1) mg/dl Direct Bilirubin (0-0.2) mg/dl AST (15-37) U/L ALT (12-78) U/L Alkaline Phosphatase (45-117) U/L Total Protein (6.4-8.2) gm/dl Albumin (3.4-5.0) gm/dl Globulin (2.5-4.0) gm/dl Albumin/Globulin Ratio (0.9-2) Procalcitonin (0-0.5) ng/ml TSH (0.300-4.500) uIu/ml COVID-19 Eval [facility] SARS-CoV-2, RNA, NAAT NEGATIVE (NEGATIVE) Flow Cytometry Comment 09/23/20 Range/Units 14:03 WBC (4.8-10.8) K/uL RBC (4.7-6.1) M/uL Hgb (14.0-18.0) g/dL Hct (42-52) % MCV (80-100) fL MCH (25-34) pg MCHC (32-36) g/dL RDW Std Deviation (36.4-46.3) fL RDW Coeff of Tamiko (11.5-14.5) % Plt Count (130-400) K/uL MPV (7.4-10.4) fL Neutrophils % (Manual) % Lymphocytes % (Manual) % Reactive Lymphs % (Man) % Monocytes % (Manual) % Eosinophils % (Manual) % Neutrophils # (Manual) (1.4-6.5) K/uL Total Absolute Neuts (1.4-6.5) K/uL Lymphocytes # (Manual) (1.2-3.4) K/uL Reactive Lymphs # K/uL Total Abs Lymphocytes (1.2-3.4) K/uL Monocytes # (Manual) (0.11-0.59) K/uL Eosinophils # (Manual) (0-0.5) K/uL Rouleaux Peripher Smr Path Cons PT (9.0-12.0) Seconds INR (0.9-1.1) Sodium (136-145) mmol/L Potassium (3.5-5.1) mmol/L Chloride (98-107) mmol/L Carbon Dioxide (21-32) mmol/L Anion Gap (3-11) BUN (7-18) mg/dl Creatinine (0.6-1.4) mg/dl Est Cr Clr Drug Dosing ml/min Est GFR ( Amer) Est GFR (Non-Af Amer) BUN/Creatinine Ratio (10-20) Glucose (70-99) mg/dl Lactate (0.4-2.0) mmol/L Calcium (8.5-10.1) mg/dl Magnesium (1.8-2.4) mg/dl Total Bilirubin 7.4 H (0.2-1) mg/dl Direct Bilirubin 6.0 H (0-0.2) mg/dl AST 318 H (15-37) U/L ALT 352 H (12-78) U/L Alkaline Phosphatase 589 H (45-117) U/L Total Protein 5.8 L (6.4-8.2) gm/dl Albumin 2.4 L (3.4-5.0) gm/dl Globulin (2.5-4.0) gm/dl Albumin/Globulin Ratio (0.9-2) Procalcitonin (0-0.5) ng/ml TSH (0.300-4.500) uIu/ml COVID-19 Eval Order SARS-CoV-2, RNA, NAAT (NEGATIVE) Flow Cytometry Comment
[2020-09-24] MEDS ORDERED: DOCUSATE SODIUM 100 MG CAP PO PRN (16:56)
[2020-09-24] MEDS ORDERED: bisacodyL 10 MG SUPP PR PRN (16:56)
--- NOTE | 2020-09-24 18:59 | Hospitalist Progress Note ---
Date of Service September 24, 2020 Assessment & Plan (1) Elevated LFTs: (2) Mononucleosis: (3) Mononucleosis, infectious, with hepatitis: Hepatitis likely secondary to mononucleosis Viral Sepsis-POA secondary to infectious mononucleosis Tested positive September 14, EBV plus mononucleosis -CT ABD: Moderate splenomegaly. Low volume ascites with minimal pericholecystic fluid, left peritoneal fluid, perisplenic fluid, and minimal pelvic fluid. Mildly prominent mesenteric lymph nodes, likely reactive. -Covid screen negative -Peripheral smear: Consistent with reactive lymphocytosis secondary to mononucleosis -Flow cytometry pending (To R/O lymphoproliferative disorder) -Blood Cx: Negative to date -Serological work-up pending Received acetylcysteine as per GI Continue to monitor LFTs, INR Avoid hepatotoxic agents Continue supportive care with IV fluids, pain control Appreciate GI input Also discussed with water resources program director at [facility] Continue to monitor LFTs Needs to avoid Contact sports until cleared by GI Needs follow up with GI upon discharge LFTs very slowly improving If develops encephalopathy, patient will need transfer to tertiary care facility Hyponatremia Continue gentle IV fluids Monitor Will consider Nephrology eval if needed Constipation Continue Bowel regimen Minimize Narcotic pain meds as able DVT Px: SCDs , ambulation Code Status: Full Code Admission and Anticipated Discharge Date Admission Date: September 21, 2020 Subjective Patient is seen and examined at bedside Remains intermittently febrile Impression slightly better Reports constipation No significant Abdominal pain Denies chest pain, Dyspnea, dizziness, nausea Review of Systems Review of Systems: All systems reviewed & are unremarkable except as noted in HPI & below Physical Exam Physical Exam: Physical Exam: Vitals signs as noted above General Appearance:Moderately built and nourished, no apparent distress Head: normocephalic, Atraumatic Eyes: normal inspection, EOMI, +Icteric Neck: supple, Trachea midline Respiratory/Chest: Normal breath sounds, CTA Cardiovascular: S1, S2, No murmur Abdomen/GI:Soft, No significant tenderness, Bowel sounds present Extremities/Musculoskelatal:normal inspection, no edema Neurologic/Psych:AAOX3, grossly no focal neurological deficits Skin: normal color, warm, +Jaundice Results & Data Results & Data ([facility]) Vital Signs (Past 12 Hours) Vital Signs Temp Pulse Pulse Pulse Resp BP BP 09/24/20 16:09 38.4 C H 97 H 18 114/67 09/24/20 12:31 36.8 C 93 H 18 108/67 09/24/20 09:42 90 09/24/20 08:27 36.7 C 75 18 109/68 Pulse Ox 09/24/20 16:09 96 09/24/20 12:31 98 09/24/20 09:42 09/24/20 08:27 98 Laboratory Results Short CBC 09/24/20 Range/Units 03:44 WBC 14.60 H (4.8-10.8) K/uL Hgb 11.9 L (14.0-18.0) g/dL Hct 34.1 L (42-52) % Plt Count 153 (130-400) K/uL BMP 09/24/20 03:44 Sodium 130 L Potassium 4.2 Chloride 99 Carbon Dioxide 26 BUN 10 Creatinine 0.79 Glucose 94 Calcium 7.7 L Liver Function 09/24/20 Range/Units 03:44 Total Bilirubin 7.5 H (0.2-1) mg/dl AST 286 H (15-37) U/L ALT 326 H (12-78) U/L Alkaline Phosphatase 567 H (45-117) U/L Albumin 2.5 L (3.4-5.0) gm/dl
[2020-09-24] MEDS ORDERED: DOCUSATE SODIUM/SENNA 50/8.6MG TAB PO SCH (21:00)
[2020-09-25] MEDS: HYDROmorphone INJ 0.5 MG/0.5 ML SYR IV PRN ×3 (05:38→18:36)
[2020-09-25 06:23] LABS: Hematocrit (blood only) 35.6 % (42-52); Hemoglobin 12.2 g/dL (14.0-18.0); Mean Corpuscular Hemoglobin 28.9 pg (25-34); Mean Corpuscular Hgb Conc 34.3 g/dL (32-36); Mean Corpuscular Volume 84.4 fL (80-100); Platelet Count 202 K/uL (130-400); RDW Standard Deviation 45.2 fL (36.4-46.3); Red Blood Count 4.22 M/uL (4.7-6.1); White Blood Count 13.34 K/uL (4.8-10.8)
[2020-09-25 07:09] LABS: Alanine Aminotransferase 288 U/L (12-78); Albumin Globulin Ratio 0.8 (0.9-2); Albumin Level 2.5 gm/dl (3.4-5.0); Alkaline Phosphatase 570 U/L (45-117); Aspartate Aminotransferase 245 U/L (15-37); BUN Creatinine Ratio 10.3 (10-20); Bilirubin,Total 7.6 mg/dl (0.2-1); Blood Urea Nitrogen 7 mg/dl (7-18); Calcium 8.6 mg/dl (8.5-10.1); Carbon Dioxide 25 mmol/L (21-32); Chloride 98 mmol/L (98-107); Creatinine Clr Calc Pharmacy 207.2 ml/min; Est GFR (African American) > 150.0; Est GFR (Non-African American) 135.6; Globulin 3.1 gm/dl (2.5-4.0); Glucose 98 mg/dl (70-99); Sodium 129 mmol/L (136-145); T4 Free Thyroxine 1.22 ng/dl (0.8-1.6); Total Protein 5.6 gm/dl (6.4-8.2)
[2020-09-25] MEDS: guaiFENesin 600 MG TABCR PO SCH ×2 (08:29→20:04)
--- NOTE | 2020-09-25 11:22 | Ultrasound Report ---
US abdomen ltd ascites CLINICAL HISTORY: Hepatitis. Mononucleosis. Abdominal bloating. COMPARISON STUDY: Abdomen and pelvis CT 09/21/2020. FINDINGS: No ascites identified. Subcutaneous abdominal wall edema is noted. Persistent splenomegaly measuring 19 cm. The spleen demonstrate a normal echotexture. No perisplenic fluid collections. IMPRESSION: 1. No ascites. 2. Persistent splenomegaly measuring 19 cm. 3. Subcutaneous abdominal wall edema. ACT 112: Negative or not required by law. Electronically signed by: Leonardo Rae M.D. 09/25/2020 11:20 AM
[2020-09-25] MEDS: POLYETHYLENE (MIRALAX) 17 GM PACK PO PRN (11:51)
[2020-09-25] MEDS ORDERED: COUGH DROP (SUGAR FREE) LOZ 24 LOZ/1 BOX BUCCAL ONE (12:22)
--- NOTE | 2020-09-25 13:01 | Gastroenterology Progress Note ---
Date of Service September 25, 2020 Assessment & Plan Admission and Anticipated Discharge Date Admission Date: September 21, 2020 Subjective No complaints Pleasant, comfortable, lucid, eating. CV: RRR Resp: CTA Abd: soft Labs reviewed - LFT's contimue to slowly improve. Na 129. A/P: EBV hepatitis - LFT's have peaked and are now slowly improving. OK for discharge in am. Will check Labs as outpt on Sunday. Would be cautious with return to play, would recommend 6 weeks from discharge. Results & Data ([facility]) Vital Signs (Past 12 Hours) Vital Signs Temp Pulse Pulse Resp BP BP Pulse Ox 09/25/20 12:10 37.4 C 84 19 100/62 99 09/25/20 08:05 36.8 C 77 19 121/71 99 09/25/20 08:00 81 09/25/20 05:21 36.7 C 86 18 114/66 93
[2020-09-25] MEDS ORDERED: traZODone HCL 50 MG TAB PO PRN (15:43)
--- NOTE | 2020-09-25 17:19 | Hospitalist Progress Note ---
Date of Service September 25, 2020 Assessment & Plan (1) Elevated LFTs: (2) Mononucleosis: (3) Mononucleosis, infectious, with hepatitis: Hepatitis likely secondary to mononucleosis Viral Sepsis-POA secondary to infectious mononucleosis Tested positive September 14, EBV plus mononucleosis -CT ABD: Moderate splenomegaly. Low volume ascites with minimal pericholecystic fluid, left peritoneal fluid, perisplenic fluid, and minimal pelvic fluid. Mildly prominent mesenteric lymph nodes, likely reactive. -Covid screen negative -Peripheral smear: Consistent with reactive lymphocytosis secondary to mononucleosis -Flow cytometry pending (To R/O lymphoproliferative disorder) -Blood Cx: Negative to date -Serological work-up pending Received acetylcysteine as per GI Continue to monitor LFTs, INR Avoid hepatotoxic agents Continue supportive care with IV fluids, pain control Appreciate GI input Also discussed with supervisor residential at [facility] Continue to monitor LFTs Needs to avoid Contact sports until cleared by GI Needs follow up with GI upon discharge LFTs very slowly improving Afebrile today Slowly improving Likely discharge tomorrow if stable Hyponatremia Received IV fluids Monitor No ascites on USD Constipation Continue Bowel regimen Minimize Narcotic pain meds as able Had BM DVT Px: SCDs , ambulation Code Status: Full Code Admission and Anticipated Discharge Date Admission Date: September 21, 2020 Subjective Patient is seen and examined at bedside States feeling much better today Appetite slowly improving No significant abdominal pain LFTs slowly trending down Discussed with GI today Continues to have sore throat Denies chest pain, Dyspnea, dizziness, nausea Review of Systems Review of Systems: All systems reviewed & are unremarkable except as noted in HPI & below Physical Exam Physical Exam: Physical Exam: Vitals signs as noted above General Appearance:Moderately built and nourished, no apparent distress Head: normocephalic, Atraumatic Eyes: normal inspection, EOMI, +Icteric Neck: supple, Trachea midline Respiratory/Chest: Normal breath sounds, CTA Cardiovascular: S1, S2, No murmur Abdomen/GI:Soft, No significant tenderness, Bowel sounds present Extremities/Musculoskelatal:normal inspection, no edema Neurologic/Psych:AAOX3, grossly no focal neurological deficits Skin: normal color, warm, +Jaundice Results & Data Results & Data ([facility]) Vital Signs (Past 12 Hours) Vital Signs Temp Pulse Pulse Resp BP BP Pulse Ox 09/25/20 16:17 37.0 C 89 18 114/66 98 09/25/20 16:00 82 09/25/20 12:10 37.4 C 84 19 100/62 99 09/25/20 08:05 36.8 C 77 19 121/71 99 09/25/20 08:00 81 09/25/20 05:21 36.7 C 86 18 114/66 93 Laboratory Results Short CBC 09/25/20 Range/Units 06:04 WBC 13.34 H (4.8-10.8) K/uL Hgb 12.2 L (14.0-18.0) g/dL Hct 35.6 L (42-52) % Plt Count 202 (130-400) K/uL BMP 09/25/20 06:04 Sodium 129 L Potassium 4.0 Chloride 98 Carbon Dioxide 25 BUN 7 Creatinine 0.68 Glucose 98 Calcium 8.6 Liver Function 09/25/20 Range/Units 06:04 Total Bilirubin 7.6 H (0.2-1) mg/dl AST 245 H (15-37) U/L ALT 288 H (12-78) U/L Alkaline Phosphatase 570 H (45-117) U/L Albumin 2.5 L (3.4-5.0) gm/dl
[2020-09-26 06:31] LABS: Hematocrit (blood only) 33.2 % (42-52); Hemoglobin 12.5 g/dL (14.0-18.0); Mean Corpuscular Hemoglobin 32.2 pg (25-34); Mean Corpuscular Hgb Conc 37.7 g/dL (32-36); Mean Corpuscular Volume 85.6 fL (80-100); Mean Platelet Volume 10.6 fL (7.4-10.4); Platelet Count 247 K/uL (130-400); RDW Coefficient of Variation 15.2 % (11.5-14.5); RDW Standard Deviation 44.9 fL (36.4-46.3); Red Blood Count 3.88 M/uL (4.7-6.1); White Blood Count 14.14 K/uL (4.8-10.8)
[2020-09-26 07:06] LABS: Alanine Aminotransferase 272 U/L (12-78); Albumin Globulin Ratio 0.8 (0.9-2); Albumin Level 2.6 gm/dl (3.4-5.0); Alkaline Phosphatase 613 U/L (45-117); Aspartate Aminotransferase 231 U/L (15-37); BUN Creatinine Ratio 12.3 (10-20); Bilirubin,Total 7.9 mg/dl (0.2-1); Blood Urea Nitrogen 9 mg/dl (7-18); Calcium 8.8 mg/dl (8.5-10.1); Carbon Dioxide 28 mmol/L (21-32); Chloride 97 mmol/L (98-107); Creatinine Clr Calc Pharmacy 193.4 ml/min; Est GFR (African American) > 150.0; Est GFR (Non-African American) 131.7; Globulin 3.2 gm/dl (2.5-4.0); Glucose 79 mg/dl (70-99); Potassium 4.2 mmol/L (3.5-5.1); Sodium 130 mmol/L (136-145); Total Protein 5.8 gm/dl (6.4-8.2)
[2020-09-26] MEDS: guaiFENesin 600 MG TABCR PO SCH (07:57)
[2020-09-26] MEDS: HYDROmorphone INJ 0.5 MG/0.5 ML SYR IV PRN (08:14)
[2020-09-26] MEDS ORDERED: HYDROmorphone INJ 0.5 MG/0.5 ML SYR IV PRN (09:14)
[2020-09-26] MEDS ORDERED: traMADol HCL 50 MG TABLET PO PRN (09:15)
--- NOTE | 2020-09-26 11:34 | Hospitalist Progress Note ---
Date of Service September 26, 2020 Assessment & Plan (1) Elevated LFTs: (2) Mononucleosis: (3) Mononucleosis, infectious, with hepatitis: Hepatitis likely secondary to mononucleosis Viral Sepsis-POA secondary to infectious mononucleosis Tested positive September 14, EBV plus mononucleosis -CT ABD: Moderate splenomegaly. Low volume ascites with minimal pericholecystic fluid, left peritoneal fluid, perisplenic fluid, and minimal pelvic fluid. Mildly prominent mesenteric lymph nodes, likely reactive. -Covid screen negative -Peripheral smear: Consistent with reactive lymphocytosis secondary to mononucleosis -Flow cytometry pending (To R/O lymphoproliferative disorder) -Blood Cx: Negative to date -Serological work-up pending Received acetylcysteine as per GI Continue to monitor LFTs, INR Avoid hepatotoxic agents Continue supportive care with IV fluids, pain control Appreciate GI input Also discussed with overcoil stepper at [facility] Continue to monitor LFTs Needs to avoid Contact sports until cleared by GI Needs follow up with GI upon discharge Transaminitis improving Appetitie better Hyponatremia Received IV fluids Monitor No ascites on USD Sodium level stable Constipation Continue Bowel regimen Minimize Narcotic pain meds as able Had BM DVT Px: SCDs , ambulation Code Status: Full Code Admission and Anticipated Discharge Date Admission Date: September 21, 2020 Subjective Patient is seen and examined at bedside Subjectively feels much better today Denies any significant pain Appetite continues to improve Denies chest pain, Dyspnea, dizziness, nausea Review of Systems Review of Systems: All systems reviewed & are unremarkable except as noted in HPI & below Physical Exam Physical Exam: Physical Exam: Vitals signs as noted above General Appearance:Moderately built and nourished, no apparent distress Head: normocephalic, Atraumatic Eyes: normal inspection, EOMI, +Icteric Neck: supple, Trachea midline Respiratory/Chest: Normal breath sounds, CTA Cardiovascular: S1, S2, No murmur Abdomen/GI:Soft, No significant tenderness, Bowel sounds present Extremities/Musculoskelatal:normal inspection, no edema Neurologic/Psych:AAOX3, grossly no focal neurological deficits Skin: normal color, warm, +Jaundice Results & Data Results & Data ([facility]) Vital Signs (Past 12 Hours) Vital Signs Temp Pulse Pulse Resp BP Pulse Ox Pulse Ox 09/26/20 10:37 37.2 C 77 21 107/65 94 09/26/20 08:36 37.0 C 79 20 120/61 94 09/26/20 07:36 79 09/26/20 04:00 37 C 98 H 16 114/65 96 09/26/20 00:34 88 09/26/20 00:00 37.3 C 99 H 16 113/63 97 98 Laboratory Results Short CBC 09/26/20 Range/Units 05:37 WBC 14.14 H (4.8-10.8) K/uL Hgb 12.5 L (14.0-18.0) g/dL Hct 33.2 L (42-52) % Plt Count 247 (130-400) K/uL BMP 09/26/20 05:37 Sodium 130 L Potassium 4.2 Chloride 97 L Carbon Dioxide 28 BUN 9 Creatinine 0.73 Glucose 79 Calcium 8.8 Liver Function 09/26/20 Range/Units 05:37 Total Bilirubin 7.9 H (0.2-1) mg/dl AST 231 H (15-37) U/L ALT 272 H (12-78) U/L Alkaline Phosphatase 613 H (45-117) U/L Albumin 2.6 L (3.4-5.0) gm/dl
--- NOTE | 2020-09-26 11:46 | Discharge Summary ---
Date of Service September 26, 2020 Admission HPI Per Admitting Provider 20 y/o male, with history of WPW, status post ablation at [facility], and no other significant medical history who was recently diagnosed with COVID-19 infection in May 31, 2020, had the negative test on September 13, 2020. He has been having fevers chills myalgias and decreased appetite since September 02, 2020. 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 This history was taken from PCPs note. He continued to have low-grade fevers however he did have actual fever as well of 101.1 Fahrenheit, has been having left-sided upper and lower quadrant abdominal discomfort, and feeling fatigued. Occasionally he also feels shortness of breath. He also reports having rash on and off since early August, different locations of his body, usually in his lower extremities sometimes on his chest, the rash is short acting, and currently patient denies having any. He was in isolation after his diagnosis, and then went home, he was no longer practicing sports and tried to get better, mostly resting. He was monitored by his PCP, who noticed that his LFTs were elevated. As his LFTs were still higher on recent labs, it was recommended that patient would be evaluated at the hospital and he was sent to the ED. In the ED GI was consulted for opinion as well, and the pt was started on acetylcysteine, hepatitis serologies pending. Admission Exam Per Admitting Provider Physical Exam Constitutional: WD/WN, vitals as above + ill appearing; no acute distress Eyes: PERRL, conjunctivae normal, anicteric sclerae ENMT: external ear and nose normal, oropharynx normal Neck: trachea midline, no thyromegaly Respiratory: normal respiratory effort, lungs clear to auscultation Auscultation: no crackles, no rhonchi and no wheezes Cardiovascular: RRR, no murmur, no edema Chest (Breasts): Chest: normal inspection of chest Gastrointestinal (Abdomen): Inspection/Auscultation: abdomen normal to inspection and normal bowel sounds; abdomen not distended Percussion/Palpation: + abdomen tender (at left upper/lower quadrants); no guarding and abdomen not rigid Musculoskeletal: no cyanosis or clubbing, extremities motor strength 5/5 Head/Neck/Chest: normocephalic and head atraumatic Skin: no rashes, warm and dry Neurologic: PERRL, EOMI, accommodation nl, no face palsy, no dysarthria Motor/Sensory: no tremor Psychiatric: A+Ox3, euthymic affect Genitourinary: no CVA tenderness Lymphatic: no lymphedema Principal Diagnosis Hepatitis Infectious mononucleosis Hyponatremia Constipation Discharge Data Allergies Allergy/AdvReac Type Severity Reaction Status Date / Time cat dander Allergy Unknown Verified 09/21/20 18:33 horse dander Allergy Unknown Verified 09/21/20 18:33 mold Allergy Unknown Verified 09/21/20 18:33 ragweed pollen Allergy Unknown Verified 09/21/20 18:33 tree and shrub pollen Allergy Unknown Verified 09/21/20 18:33 Consultations 09/21/20 18:10 ED Decision to Admit Stat 09/22/20 00:20 Consult Gastroenterology Routine Procedures Performed CT ABD: Moderate splenomegaly. Low volume ascites with minimal pericholecystic fluid, left peritoneal fluid, perisplenic fluid, and minimal pelvic fluid. Mildly prominent mesenteric lymph nodes, likely reactive. Ordered Studies 09/21/20 11:45 CT abd pelvis IV con only Stat CT angio chest PE protocol Stat 09/25/20 08:52 US abdomen ltd ascites Routine Hospital Course (1) Elevated LFTs: (2) Mononucleosis: (3) Mononucleosis, infectious, with hepatitis: Hepatitis likely secondary to mononucleosis Viral Sepsis-POA secondary to infectious mononucleosis Tested positive September 14, EBV plus mononucleosis -CT ABD: Moderate splenomegaly. Low volume ascites with minimal pericholecystic fluid, left peritoneal fluid, perisplenic fluid, and minimal pelvic fluid. Mildly prominent mesenteric lymph nodes, likely reactive. -Covid screen negative -Peripheral smear: Consistent with reactive lymphocytosis secondary to mononucleosis -Flow cytometry pending (To R/O lymphoproliferative disorder) -Blood Cx: Negative to date -Serological work-up pending Received acetylcysteine as per GI Continue to monitor LFTs, INR Avoid hepatotoxic agents Continue supportive care with IV fluids, pain control Appreciate GI input Also discussed with overlock collar setter at [facility] Continue to monitor LFTs Needs to avoid Contact sports until cleared by GI Needs follow up with GI upon discharge Transaminitis improving Appetitie better Hyponatremia Received IV fluids Monitor No ascites on USD Sodium level stable Constipation Continue Bowel regimen Minimize Narcotic pain meds as able Had BM DVT Px: SCDs , ambulation Code Status: Full Code Total Time Total Time Spent Total Time Spent (In Minutes): 38 minutes Total Time Includes: Examination of the Patient, Discharge Planning, Medication Reconciliation, Communication With Other Providers and Other Discharge Plan Discharge Items Patient Disposition: Home - Self-Care Reason For Visit: ABNORMAL LFT'S,EBV+,JAUNDICE Discharge Diagnosis: Hepatitis Infectious mononucleosis Hyponatremia Constipation Condition on Discharge: Good Activity: Per Instructions section Exercise/Sports: Wait until after follow-up appointment Non-emergency contact: Primary Care Provider and Account Developer Call non-emergency contact if: you have any medication questions, your symptoms worsen, your pain is not controlled, your pain is concerning for you and you have a fever Follow-up/Referrals: Shauna Hernandez MD [Primary Care Provider] - Diet: Regular Addtl Attending Provider Instructions: Follow-up with your primary care physician in 1 week as advised Follow-up with your crusher and binder operator Dr. Valentine on 09/28/20 with Blood work as advised Avoid alcohol use, acetaminophen as advised Avoid contact sports until cleared by your crusher and binder operator Seek immediate medical attention if your symptoms reoccur or worsen Your serological testing is pending at the time of discharge. Follow-up with your physician for results. Pending Studies at Discharge: Yes Studies:: Serological Work up Stand-Alone Forms: [facility], Smoking Cessation Medications and DC Order Prescriptions: New polyethylene glycol 3350 [Miralax] 17 gram Powder In Packet 17 g PO DAILY PRN (Reason: constipation) Qty: 30 RF: 0 sennosides-docusate sodium [Senokot-S] 8.6-50 mg Tablet 2 tab PO BID PRN (Reason: Constipation) Qty: 30 RF: 0 tramadol 50 mg Tablet 50 mg PO BID PRN (Reason: pain) Qty: 10 RF: 0 guaifenesin [Mucinex] 600 mg Tablet Extended Release 12hr 600 mg PO Q12 Qty: 6 RF: 0 Changed ibuprofen 200 mg Tablet 200 mg PO Q8H PRN (Reason: Fever Or Pain) Qty: 0 RF: 0 Discontinued NyQuil 7.5-60-30-1,000 mg/30 mL Liquid 30 ml PO QID PRN (Reason: Unknown) RF: 0 Discharge Orders: Discharge Order (Routine); Ordered 09/26/20 Ordered By: Mike Mckeon Admission Data Admit Date/Time: 09/21/20 23:19 Attending Provider: Mike Mckeon Admit Provider: Avery Samayoa Primary Care Provider: Shauna Hernandez Other Providers: Pastor Gould ; Avery Samayoa Other Interventions: Discharge Summary Assessment (RN) Last Done: 09/26/20 12:31
[2020-09-27 14:57] LABS: Anti Mitochondrial Antibody NEGATIVE (NEGATIVE); Anti Nuclear Antibody Screen NEGATIVE (NEGATIVE); CMV IgG Antibody <0.60 U/mL; CMV IgM Antibody <30.00 AU/mL; Hepatitis A Antibody IgM NON-REACTIVE (NON-REACTIVE); Hepatitis B Core Antibody IgM NON-REACTIVE (NON-REACTIVE); Herpes Simplex Ab IgG-1 <0.90 index; Herpes Simplex Ab IgG-2 <0.90 index; Smooth Muscle Antibody NEGATIVE (NEGATIVE)
== END 2020-09-26 13:53 | disposition home or self-care (01) | DRG 872 ==
LOC: ED 10:28 → SUATTDRO 23:19 → EDINP 23:19 → 2S 09-22 02:19